=== PATIENT | female | born 1970 | race Caucasian/White ===

== ENCOUNTER 2021-04-21 11:33 | Inpatient (IN) ==
[2021-04-21 14:20] LABS: BASOPHILS # (AUTO) 0.1 X10^3/uL (0.0-0.1); BASOPHILS % (AUTO) 0.8 % (0.2-1.0); EOSINOPHILS # (AUTO) 0.2 x10^3/uL (0.0-0.2); EOSINOPHILS % (AUTO) 1.5 % (0.9-2.9); HEMATOCRIT 41.1 % (36.0-47.0); LYMPHOCYTES # (AUTO) 2.9 X10^3/uL (1.3-2.9); LYMPHOCYTES % (AUTO) 24.6 % (21.0-51.0); MEAN CORPUSCULAR HEMOGLOBIN 30.1 pg (27.0-34.0); MEAN CORPUSCULAR HGB CONC 34.1 g/dL (33.0-35.0); MEAN CORPUSCULAR VOLUME 88.3 fL (80.0-100.0); MEAN PLATELET VOLUME 7.4 fL (7.4-11.0); MONOCYTES # (AUTO) 0.5 x10^3/uL (0.3-0.8); MONOCYTES % (AUTO) 4.5 % (0.0-13.0); NEUTROPHILS # (AUTO) 8.2 x10^3/uL (2.2-4.8); NEUTROPHILS % (AUTO) 68.6 % (42.0-75.0); PLATELET COUNT 307 X10^3/uL (150.0-450.0); RED BLOOD COUNT 4.65 X10^6/uL (3.5-5.4); RED CELL DISTRIBUTION WIDTH 15.6 % (11.6-16.5); WHITE BLOOD COUNT 11.9 X10^3/uL (3.6-10.0)
[2021-04-21 14:32] LABS: ALANINE AMINOTRANSFERASE 23 Units/L (12-78); ALKALINE PHOSPHATASE 88 Units/L (46-116); ASPARTATE AMINO TRANSFERASE 15 Units/L (15-37); BLOOD UREA NITROGEN 27 mg/dL (7-18); CARBON DIOXIDE 29.2 mmol/L (21-32); CHLORIDE 107 mmol/L (98-107); COR CA(FOR HYPOALB) 9.8 mg/dL (8.5-10.1); CREATININE 0.82 mg/dL (0.55-1.02); SODIUM 141 mmol/L (136-145); TOTAL PROTEIN 6.7 g/dL (6.4-8.2); eGFR NON BLACK RACES > 60 (>60)
[2021-04-21] MEDS: LR 1000 ML IV 1,000 ML IV SCH (14:47)
[2021-04-21] MEDS: ZOSYN VIAL 3.375 GRAMS 3.375 G in NS 100 ML IV + SPIKE MINIBAG* 100 ML IV SCH ×3 (14:47→21:25)
[2021-04-21] MEDS ORDERED: NS 100 ML IV 100 ML ONE (14:50)
[2021-04-21] MEDS ORDERED: HumuLIN R SUBCUT PRN (15:46)
[2021-04-21] MEDS: NICOTINE PATCH TD SCH (16:28)
[2021-04-21] MEDS: DILAUDID INJ IVP PRN ×2 (16:29→22:05)
[2021-04-21] MEDS: SNACK - Diabetic Appropriate PO SCH (20:10)
[2021-04-21] MEDS: KLONOPIN TAB 1 MG PO PRN (21:09)
[2021-04-21] MEDS: HYZAAR 50/12.5 MG PO SCH (21:10)
[2021-04-21] MEDS: TOPROL XL PO SCH (21:10)
--- NOTE | 2021-04-21 22:07 | CT ---
CTA AORTA WITH RUNOFFIndication: Severe ischemia to left footTechnique: Helical CT images of the abdomen and pelvis were obtained with and without IV contrast with bilateral lower extremity runoff.. Reformatted images in the coronal and sagittal planes were also generated for review.Comparison: NoneFindings: Lung bases are clear. There is no acute osseous abnormality.Noncontrast images through the abdomen and pelvis are unremarkable. Within the limits of an arterial phase exam, the liver, spleen, pancreas, adrenals and kidneys are unremarkable. No urolithiasis or obstructive uropathy. There is mild distal colonic diverticulosis without diverticulitis. There is no bowel obstruction or inflammation. The urinary bladder is grossly unremarkable. Uterus is present. Bilateral, likely physiologic ovarian cysts noted. There is no free air, free fluid or bulky lymphadenopathy.The celiac axis and its branches, SMA, single right and 2 left renal arteries and RAQUEL are patent. Abdominal aorta is minimally calcified without aneurysm, dissection or occlusion.There is approximately 75% short-segment stenosis of the left common iliac artery secondary to calcified and soft atheromatous plaque. The right common and bilateral internal iliac arteries are mildly calcified but patent. Both external iliac arteries are widely patent.Right lower extremity. The CHAIN MAKER HAND, profunda femoris, SFA and popliteal artery are widely patent. Peroneal artery is patent to the level of the ankle. The anterior and posterior tibial arteries are widely patent with normal two-vessel runoff to the right foot.Left lower extremity: CHAIN MAKER HAND is minimally calcified the profunda femoris, SFA and popliteal artery are widely patent. Peroneal artery is patent to the level of the ankle. The anterior and posterior tibial arteries are widely patent with normal two-vessel runoff to the left foot.Impression:1. Mild atherosclerotic disease, notable for short segment, approximately 75 % stenosis of the left common iliac artery.2. No significant peripheral vascular disease. Normal two-vessel runoff to both feet.3. Other chronic/nonacute findings as described above.Electronically signed by: DI BLEVINS (Apr 21, 2021 22:04:15)
--- NOTE | 2021-04-21 22:53 | NOTE.SOAP ---
Soap Note Note for Day of Date of Exam: 04/21/21 Subjective Data Subjective Data: Patient admitted for critical limb threatening ischemia left extremity with not having wound left great toe several weeks. Patient had no palpable distal pulses. CT angiogram shows 75 % stenosis of the left common iliac artery Objective Data Temperature: 98 F Pulse Rate: 67 Respiratory Rate: 18 Blood Pressure: 149/76 O2 Sat by Pulse Oximetry: 100 Objective Data: Cool left foot. No palpable pulses distally. Difficult to palpate left femoral artery. CT angiogram shows setting prices stenosis of the left common iliac artery over a short segment. Assessment Assessment: Severe stenosis of the left common iliac artery. Plan Plan: Continue IV antibiotics. Plan intervention on 04/23 to include possible AngioJet aspiration and stenting of the left common iliac artery
[2021-04-22] MEDS: DILAUDID INJ IVP PRN ×6 (02:08→23:58)
[2021-04-22] MEDS: LR 1000 ML IV 1,000 ML IV SCH ×2 (02:12→15:45)
--- NOTE | 2021-04-22 08:11 | RAD ---
HISTORYSEVERE ISCHEMIA TO LEFT FOOT, PRE OPSTUDYCHEST x-ray, 1 VIEWCOMPARISONNoneFINDINGSThe trachea is midline. The cardiac silhouette is unremarkable .Lungs appear clear. No pneumothorax or pleural effusion is seen.No acute bony abnormality is seen.IMPRESSIONNo acute cardiopulmonary abnormality is seen.Electronically signed by: Charly Curtis (Apr 22, 2021 08:09:26)
[2021-04-22] MEDS: NICOTINE PATCH TD SCH (09:19)
[2021-04-22] MEDS: ZOSYN VIAL 3.375 GRAMS 3.375 G in NS 100 ML IV + SPIKE MINIBAG* 100 ML IV SCH ×2 (09:19→13:18)
--- NOTE | 2021-04-22 12:36 | NOTE.SOAP ---
Soap Note Note for Day of Date of Exam: 04/22/21 Subjective Data Subjective Data: Did well through night.Pain controlled with IV dilaudid. Objective Data Temperature: 97.6 F Pulse Rate: 60 Respiratory Rate: 18 Blood Pressure: 143/79 O2 Sat by Pulse Oximetry: 97 Objective Data: Left foot unchanged. CTA shows greater than 75 % stenosis of the left common iliac artery. Assessment Assessment: Critical limb threatening ischemia left leg secondary to severe stenosis left common iliac artery. Plan Plan: Will plan aortogram, possible Angiojet left common iliac artery and stenting left common iliac artery. Risks and benefits discussed with the patient and her . She agrees to proceed.
[2021-04-22] MEDS: ZOSYN VIAL 3.375 GRAMS 3.375 G in NS 50 ML IV + SPIKE MINIBAG* 50 ML IV SCH ×2 (13:18→21:04)
[2021-04-22] MEDS: SNACK - Diabetic Appropriate PO SCH (19:58)
[2021-04-22] MEDS: TOPROL XL PO SCH (20:01)
[2021-04-22] MEDS: HYZAAR 50/12.5 MG PO SCH (20:01)
[2021-04-22] MEDS: KLONOPIN TAB 1 MG PO PRN (21:04)
[2021-04-23] MEDS: DILAUDID INJ IVP PRN ×2 (04:01→08:55)
[2021-04-23] MEDS: LR 1000 ML IV 1,000 ML IV SCH ×3 (04:05→19:20)
[2021-04-23] MEDS: ZOSYN VIAL 3.375 GRAMS 3.375 G in NS 50 ML IV + SPIKE MINIBAG* 50 ML IV SCH ×3 (06:25→21:40)
[2021-04-23] MEDS: NICOTINE PATCH TD SCH (08:04)
[2021-04-23] MEDS ORDERED: KETALAR ONE (10:14)
[2021-04-23] MEDS ORDERED: FENTANYL INJ 100 mcg ONE (10:15)
[2021-04-23] MEDS ORDERED: MARCAINE or SENSORCAINE 0.25% WITH EPI IJ ONE (10:15)
[2021-04-23] MEDS ORDERED: HEPARIN SODIUM INJ 5000 UNITS ONE (10:17)
[2021-04-23] MEDS ORDERED: HEPARIN SODIUM IN D5W 75,000 UNITS/1,500 ML BAG ONE (10:18)
[2021-04-23] MEDS ORDERED: NS 1000 ML 1,000 ML ONE (10:26)
[2021-04-23] MEDS ORDERED: PROTAMINE SULFATE 50 MG VIAL ONE (10:55)
[2021-04-23] MEDS ORDERED: VERSED ONE (10:55)
[2021-04-23] MEDS ORDERED: ZOFRAN INJ 4 MG VIAL ONE (10:55)
[2021-04-23] MEDS ORDERED: DECADRON INJ ONE (10:55)
[2021-04-23] MEDS ORDERED: TORADOL 30 MG VIAL ONE (10:55)
[2021-04-23] MEDS ORDERED: DIPRIVAN VIAL ONE (10:55)
[2021-04-23] MEDS ORDERED: ANCEF 1 GRAM IV PREMIX* 2 G/100 ML BAG IV ONE (11:05)
--- NOTE | 2021-04-23 11:50 | OR.IMMED ---
IMMEDIATE POST-OP NOTE Immediate Post-Op Note Pre-Op Diagnosis: Severe stenosis left common iliac artery, critical left leg i schemia Post-Op Diagnosis: same Procedure: Diagnostic aortogram, stenting left common iliac stenosis Description of Procedure: See operative summary Surgeon/Weight Shifter: Louie Findings: as above Specimens Removed: none Estimated Blood Loss: < 20 cc Drains: NONE Complications: none Progress Notes: to floor , probably d/c home later today Discharge Progress Notes: Excellent palpable pulse in left groin not there pre -op Condition: Stable Post Hospital Plans and Medications: as above Final Diagnosis: severe stenosis left common iliac artery, critical left leg ischemia.
[2021-04-23] MEDS ORDERED: PLAVIX PO ONE (11:52)
[2021-04-23] MEDS: PERCOCET TAB 5/325 MG PO PRN ×2 (14:15→19:29)
[2021-04-23] MEDS ORDERED: XYLOCAINE 1 % (PLAIN) ONE (15:04)
--- NOTE | 2021-04-23 16:19 | NOTE.SOAP ---
Soap Note Note for Day of Date of Exam: 04/23/21 Subjective Data Subjective Data: S/p stenting left common iliac artery. Patient with continued bleeding form right groin puncture site . Plan Plan: Puncture site sutured closed with mattress suture of 5-0 Prolene using local anesthesia. Bleeding stopped . Will observe overnight, check CBC in AM and will observe. May start diet.
[2021-04-23] MEDS: SNACK - Diabetic Appropriate PO SCH (19:43)
[2021-04-23] MEDS: TOPROL XL PO SCH (21:36)
[2021-04-23] MEDS: HYZAAR 50/12.5 MG PO SCH (21:36)
[2021-04-23] MEDS: KLONOPIN TAB 1 MG PO PRN (21:48)
[2021-04-24] MEDS: PERCOCET TAB 5/325 MG PO PRN ×2 (03:55→07:58)
[2021-04-24] MEDS: ZOSYN VIAL 3.375 GRAMS 3.375 G in NS 50 ML IV + SPIKE MINIBAG* 50 ML IV SCH (05:28)
[2021-04-24 05:31] LABS: BASOPHILS # (AUTO) 0.1 X10^3/uL (0.0-0.1); BASOPHILS % (AUTO) 0.4 % (0.2-1.0); EOSINOPHILS % (AUTO) 0.1 % (0.9-2.9); HEMATOCRIT 39.1 % (36.0-47.0); HEMOGLOBIN 13.3 g/dL (12.0-16.0); LYMPHOCYTES # (AUTO) 2.3 X10^3/uL (1.3-2.9); LYMPHOCYTES % (AUTO) 17.7 % (21.0-51.0); MEAN CORPUSCULAR HEMOGLOBIN 30.2 pg (27.0-34.0); MEAN CORPUSCULAR HGB CONC 34.1 g/dL (33.0-35.0); MEAN CORPUSCULAR VOLUME 88.6 fL (80.0-100.0); MEAN PLATELET VOLUME 8.4 fL (7.4-11.0); MONOCYTES # (AUTO) 0.8 x10^3/uL (0.3-0.8); MONOCYTES % (AUTO) 6.1 % (0.0-13.0); NEUTROPHILS # (AUTO) 9.6 x10^3/uL (2.2-4.8); NEUTROPHILS % (AUTO) 75.7 % (42.0-75.0); PLATELET COUNT 271 X10^3/uL (150.0-450.0); RED BLOOD COUNT 4.41 X10^6/uL (3.5-5.4); RED CELL DISTRIBUTION WIDTH 15.5 % (11.6-16.5); WHITE BLOOD COUNT 12.7 X10^3/uL (3.6-10.0)
[2021-04-24] MEDS: LR 1000 ML IV 1,000 ML IV SCH (07:53)
--- NOTE | 2021-04-24 08:32 | DR.OPNOTE ---
OP NOTE Pre-Op Diagnosis: critical left leg ischemia, severe stenosis of the left common iliac artery Post-Op Diagnosis: same Procedure Date Date Of Procedure: 04/23/21 Procedure: The patient was taken to the operating suite and placed in the supine position and both groins prepped and draped in sterile fashion. Timeout for the procedure obtained. The right common femoral artery was identified using ultrasonography and the skin overlying it infiltrated with 0.5 %Marcaine with epinephrine. Ultrasonography used to guide the puncture of the right common femoral artery. A 0.014 inch wire was placed. The skin overlying the wire was incised with a number 11 knife blade and a micro sheath placed into the right common from artery. The small wire exchanged for a 0.035 inch Advantage guidewire and the micro sheath exchanged for a 5 [place]ian short vascular sheath . Omni catheter placed over the guidewire and a diagnostic aortogram carried out showing severe stenosis, near total occlusion of the proximal left common iliac artery. The Omni catheter was used to guide the 0.035 inch wire into the take off of the left common iliac artery and I was able to get across this stenosis with this wire. The patient had been heparinized with 5000 units of heparin at the beginning of the case. The short sheath in the right groin exchanged for a 6 [place]ian destination sheath which was parked just at the take off of the left common iliac artery. I then placed a [place] 8 mm x 37 mm stent across this stenosis and ballooned it open. I then repeated arteriogram showed excellent flow with resolution of the stenosis. I then performed diagnostic art eriogram of the distal left iliac artery, left common femoral artery, left superficial femoral artery and they were all normal corresponding to the CT angiogram. Destination sheath was exchanged for a short 7 [place]ian sheath in the right groin and this exchanged for the Angioseal device which was used to close the puncture in the right femoral artery. Patient was given a total of 50 mg of IV protamine. Dressing applied to the right groin in the patient taken to the recovery in good condition. Type of Anesthesia: Local (5 cc 0.5 % MArcaine with epinephrine) Anesthesia Comment: MAC Findings: Severe stenosis of the left common iliac artery Specimen/Pathology: none EBL: minimal Drains/Tubes Placed: None Hardware: 8x 37 mm stent placed in the left common iliac artery Complications:: none Needle/Sponge Count:: correct Disposition/Condition: Pt. tolerated procedure without difficulty. Taken to PACU in stable condition.
[2021-04-24 08:34] VITALS: BP 161/83
[2021-04-24] MEDS: NICOTINE PATCH TD SCH (08:35)
--- NOTE | 2021-04-24 10:15 | PCM.DCPLAN ---
DISCHARGE SUMMARY Admission Date Date of Admission: 04/22/21 Discharge Date Discharge Date: 04/24/21 Discharge Diagnoses Discharge Diagnosis: critical limb ischemia and severe stenosis left common iliac artery Discharge Medications Discharge Medications: Home Medication List clonazepam 1 mg PO BID PRN 04/21/21 [History] hydrochlorothiazide 12.5 mg PO DAILY 04/21/21 [History] losartan 50 mg PO DAILY 04/21/21 [History] metformin 500 mg PO DAILY 04/21/21 [History] metoprolol succinate 50 mg PO DAILY 04/21/21 [History] clopidogrel [Plavix] 75 mg PO ONCE #90 tab 04/24/21 [Rx] oxycodone-acetaminophen [Percocet] 1 tab PO Q6H PRN #30 tab MDD 4 04/24/21 [Rx] Prescriptions: clopidogrel [Plavix] Reji Palma oxycodone-acetaminophen [Percocet] Reji Palma Hospital Course Vital Signs: Temperature 98.3 F Pulse Rate [Left Brachial] 68 Pulse Rate 67 Respiratory Rate 22 Blood Pressure [Left Arm] 161/83 Blood Pressure 147/66 O2 Sat by Pulse Oximetry 100 Latest Lab Results: Laboratory Last Values WBC 12.7 X10^3/uL (3.6-10.0) H 04/24/21 03:58 RBC 4.41 X10^6/uL (3.5-5.4) 04/24/21 03:58 Hgb 13.3 g/dL (12.0-16.0) 04/24/21 03:58 Hct 39.1 % (36.0-47.0) 04/24/21 03:58 MCV 88.6 fL (80.0-100.0) 04/24/21 03:58 MCH 30.2 pg (27.0-34.0) 04/24/21 03:58 MCHC 34.1 g/dL (33.0-35.0) 04/24/21 03:58 RDW 15.5 % (11.6-16.5) 04/24/21 03:58 Plt Count 271 X10^3/uL (150.0-450.0) 04/24/21 03:58 MPV 8.4 fL (7.4-11.0) 04/24/21 03:58 Neut % (Auto) 75.7 % (42.0-75.0) H 04/24/21 03:58 Lymph % (Auto) 17.7 % (21.0-51.0) L 04/24/21 03:58 Blair % (Auto) 6.1 % (0.0-13.0) 04/24/21 03:58 Eos % (Auto) 0.1 % (0.9-2.9) L 04/24/21 03:58 Baso % (Auto) 0.4 % (0.2-1.0) 04/24/21 03:58 Neut # (Auto) 9.6 x10^3/uL (2.2-4.8) H 04/24/21 03:58 Lymph # (Auto) 2.3 X10^3/uL (1.3-2.9) 04/24/21 03:58 Blair # (Auto) 0.8 x10^3/uL (0.3-0.8) 04/24/21 03:58 Eos # (Auto) 0.0 x10^3/uL (0.0-0.2) 04/24/21 03:58 Baso # (Auto) 0.1 X10^3/uL (0.0-0.1) 04/24/21 03:58 Absolute Nucleated RBC 0.0 /100WBC 04/24/21 03:58 Sodium 141 mmol/L (136-145) 04/21/21 14:11 Corrected Sodium TNP 04/21/21 14:11 Potassium 4.6 mmol/L (3.5-5.1) 04/21/21 14:11 Chloride 107 mmol/L (98-107) 04/21/21 14:11 Carbon Dioxide 29.2 mmol/L (21-32) 04/21/21 14:11 BUN 27 mg/dL (7-18) H 04/21/21 14:11 Creatinine 0.82 mg/dL (0.55-1.02) 04/21/21 14:11 Est GFR (MDRD) Af Amer > 60 (>60) 04/21/21 14:11 Est GFR (MDRD) Non-Af > 60 (>60) 04/21/21 14:11 Glucose 95 mg/dL (65-99) 04/21/21 14:11 POC Glucose (mg/dL) 120 mg/dL (65-99) H 04/24/21 05:22 Calcium 9.0 mg/dL (8.5-10.1) 04/21/21 14:11 Corrected Calcium 9.8 mg/dL (8.5-10.1) 04/21/21 14:11 Total Bilirubin 0.20 mg/dL (0.2-1.0) 04/21/21 14:11 AST 15 Units/L (15-37) 04/21/21 14:11 ALT 23 Units/L (12-78) 04/21/21 14:11 Alkaline Phosphatase 88 Units/L (46-116) 04/21/21 14:11 Total Protein 6.7 g/dL (6.4-8.2) 04/21/21 14:11 Albumin 3.0 g/dL (3.4-5.0) L 04/21/21 14:11 Globulin 3.7 g/dL (2.5-4.5) 04/21/21 14:11 Albumin/Globulin Ratio 0.8 Ratio (1.1-2.1) L 04/21/21 14:11 SARS CoV-2 RNA Rapid KAVYA Negative (NEGATIVE) 04/21/21 13:00 Hospital Course: 50-year-old female who presented with several week history of pain of the left foot and nonhealing wound to the left great toe, followed by her administrative judge. She has a long history of significant tobacco use and is also a diabetic. At the initial presentation I felt she had critical limb ischemia and she was admitted. She was placed on IV antibiotics and CT angiogram carried out showing greater than a 75% stenosis of the proximal left common iliac artery. On 04/23/2021 she was taken to the operating suite and underwent stenting of the left common iliac artery. Her rest pain is now resolved. She now has palpable pulses at the ankle in both the posterior tibial and dorsalis pedis locations which were not there preoperatively. She will discharged home at this time on her usual medications plus Percocet, 5 mg tablets, one every 6 hours PRN pain, # 30 and Plavix 75 mg PO Q day. She has a follow up with her administrative judge next Tuesday. She will see me in my office in approximately one week. She will need no additional antibiotics. Instructions Instructions: Steps to Quit Smoking, [id number] Hypertension, [id number]-[id number] Coronary Artery Disease, Female Forms: Excuse From Work or School Precautions for COVID19 Patient Portal Social Distancing
== END 2021-04-24 10:32 | disposition home or self-care (01) | DRG 254 ==
LOC: MED/SURG → OBSVTOIN 12:35
PROVIDERS: ADMIT Surgery; ATTEND Surgery
DX: I70.222 Atherosclerosis of native arteries of extremities with rest pain, left leg; I10 Essential (primary) hypertension; Z20.822 Contact with and (suspected) exposure to COVID-19; R52 Pain, unspecified; I70.245 Atherosclerosis of native arteries of left leg with ulceration of other part of foot; L97.528 Non-pressure chronic ulcer of other part of left foot with other specified severity; F12.20 Cannabis dependence, uncomplicated; Z72.0 Tobacco use; E11.51 Type 2 diabetes mellitus with diabetic peripheral angiopathy without gangrene

== ENCOUNTER 2022-09-08 11:41 | Inpatient (IN) ==
[2022-09-08] MEDS ORDERED: NovoLIN R (or HumuLIN R) SC PRN (13:22)
[2022-09-08] MEDS ORDERED: LOPRESSOR TAB 50 MG PO ONE (13:22)
[2022-09-08] MEDS ORDERED: HEPARIN SODIUM IN D5W 25,000 UNITS/500 ML BAG IV PRN ×2 (13:24→16:08)
[2022-09-08 13:37] VITALS: BMI 28.0
[2022-09-08 13:54] LABS: MEAN CORPUSCULAR HEMOGLOBIN 29.4 pg (27.0-34.0); MEAN CORPUSCULAR HGB CONC 34.9 g/dL (33.0-35.0); MEAN PLATELET VOLUME 7.8 fL (7.4-11.0); RED BLOOD COUNT 4.76 X10^6/uL (3.5-5.4); WHITE BLOOD COUNT 9.7 X10^3/uL (3.6-10.0)
[2022-09-08 13:58] LABS: BASOPHILS # (AUTO) 0.1 X10^3/uL (0.0-0.1); BASOPHILS % (AUTO) 0.8 % (0.2-1.0); EOSINOPHILS # (AUTO) 0.1 x10^3/uL (0.0-0.2); EOSINOPHILS % (AUTO) 1.5 % (0.9-2.9); HEMATOCRIT 40.1 % (36.0-47.0); LYMPHOCYTES # (AUTO) 2.6 X10^3/uL (1.3-2.9); LYMPHOCYTES % (AUTO) 26.6 % (21.0-51.0); MEAN CORPUSCULAR VOLUME 84.2 fL (80.0-100.0); MONOCYTES # (AUTO) 0.5 x10^3/uL (0.3-0.8); MONOCYTES % (AUTO) 4.8 % (0.0-13.0); NEUTROPHILS # (AUTO) 6.4 x10^3/uL (2.2-4.8); NEUTROPHILS % (AUTO) 66.3 % (42.0-75.0)
[2022-09-08 13:59] LABS: INR 1.05 (0.8-1.3)
[2022-09-08 14:05] LABS: ALANINE AMINOTRANSFERASE 27 Units/L (12-78); ALBUMIN 3.9 g/dL (3.4-5.0); ALKALINE PHOSPHATASE 111 Units/L (46-116); ASPARTATE AMINO TRANSFERASE 21 Units/L (15-37); BLOOD UREA NITROGEN 27 mg/dL (7-18); CALCIUM 9.1 mg/dL (8.5-10.1); CARBON DIOXIDE 24.4 mmol/L (21-32); CHLORIDE 103 mmol/L (98-107); COR NA(FOR HYPERGLY) 139 mmol/L (136-145); CREATININE 1.44 mg/dL (0.55-1.02); SODIUM 139 mmol/L (136-145); TOTAL PROTEIN 7.2 g/dL (6.4-8.2); eGFR NON BLACK RACES 41 (>60)
[2022-09-08] MEDS ORDERED: HEPARIN SODIUM INJ 5000 UNITS IVP ONE ×2 (14:10→22:37)
[2022-09-08] MEDS: LR 1,000 ML IV 1,000 ML IV SCH (14:47)
[2022-09-08] MEDS: KLONOPIN TAB 1 MG PO SCH ×2 (14:47→21:01)
[2022-09-08] MEDS: DILAUDID INJ IVP PRN ×3 (16:46→23:24)
--- NOTE | 2022-09-08 17:14 | CT ---
HISTORYacute ischemia rt legSTUDYCTA AORTA WITH RUNOFFCOMPARISONTECHNIQUESpiral CT imaging was performed from the lung bases down through the feet both before and after the intravenous administration of iodinated contrast. Axial, coronal, sagittal, and 3D images were generated. Dose reduction techniques including Automated Exposure Control (AEC) and adjustment of mA and kV were utilized.FINDINGSThere is moderate atherosclerosis in the abdominal aorta but no significant disease in the celiac trunk or SMA. There is some disease at the origins of the renal arteries but no flow limiting stenosis. There is normal flow in the RAQUEL. There is disease in the right common iliac. There is a stent in the left common iliac and severely restricted flow within the stent due to soft plaque. There is disease in the internal iliac arteries bilaterally, left worse than right with approximately 50 percent stenosis in the proximal left ICA. There is heterogeneous plaque in the common femoral arteries bilaterally. There is no significant plaque in the superficial or deep femoral arteries. There is no significant disease in the popliteal artery and there is 3 vessel runoff bilaterally.The lung bases are clear without effusion. Heart size is normal. The liver, pancreas, spleen, adrenal glands, and kidneys are normal. The stomach, small bowel, appendix are normal. Large bowel loops are unremarkable. Urinary bladder is normal. Uterus is normal and there is no adnexal mass. There is no worrisome bone marrow lesion.IMPRESSION1. No obstruction in the flow to the right leg. 2. Heterogeneous plaque in the distal aorta and in the right common iliac as described. 3. Stent in the left common iliac artery with soft plaque causing considerable reduction to flow. Consider referral to interventional radiology for follow-up.Electronically signed by: Sky Barrientos (Sep 08, 2022 17:13:32)
[2022-09-08] MEDS: NICOTINE PATCH TD SCH (18:14)
[2022-09-09] MEDS: LR 1,000 ML IV 1,000 ML IV SCH (04:35)
[2022-09-09 04:38] LABS: BASOPHILS % (AUTO) 0.5 % (0.2-1.0); EOSINOPHILS # (AUTO) 0.2 x10^3/uL (0.0-0.2); EOSINOPHILS % (AUTO) 2.5 % (0.9-2.9); HEMATOCRIT 39.2 % (36.0-47.0); HEMOGLOBIN 13.4 g/dL (12.0-16.0); LYMPHOCYTES # (AUTO) 3.5 X10^3/uL (1.3-2.9); LYMPHOCYTES % (AUTO) 37.2 % (21.0-51.0); MEAN CORPUSCULAR HEMOGLOBIN 28.8 pg (27.0-34.0); MEAN CORPUSCULAR HGB CONC 34.1 g/dL (33.0-35.0); MEAN CORPUSCULAR VOLUME 84.3 fL (80.0-100.0); MEAN PLATELET VOLUME 8.1 fL (7.4-11.0); MONOCYTES # (AUTO) 0.6 x10^3/uL (0.3-0.8); MONOCYTES % (AUTO) 6.8 % (0.0-13.0); RED BLOOD COUNT 4.65 X10^6/uL (3.5-5.4); RED CELL DISTRIBUTION WIDTH 15.5 % (11.6-16.5); WHITE BLOOD COUNT 9.5 X10^3/uL (3.6-10.0)
[2022-09-09 04:50] LABS: ALBUMIN 3.3 g/dL (3.4-5.0); CALCIUM 8.5 mg/dL (8.5-10.1); CARBON DIOXIDE 26.2 mmol/L (21-32); COR CA(FOR HYPOALB) 9.1 mg/dL (8.5-10.1); CREATININE 1.38 mg/dL (0.55-1.02); TOTAL PROTEIN 6.4 g/dL (6.4-8.2)
[2022-09-09] MEDS: KLONOPIN TAB 1 MG PO SCH ×2 (05:23→15:34)
[2022-09-09] MEDS: DILAUDID INJ IVP PRN (05:59)
[2022-09-09] MEDS ORDERED: ASPIRIN EC 81 MG PO SCH (09:00)
[2022-09-09] MEDS ORDERED: HYZAAR 50/12.5 MG PO SCH (09:00)
--- NOTE | 2022-09-09 09:44 | DR.UPDATE ---
H&P UPDATE Review Yes Any changes to H&P?: No
[2022-09-09] MEDS ORDERED: HEPARIN SODIUM INJ 5000 UNITS IVP ONE (10:48)
[2022-09-09] MEDS ORDERED: HEPARIN SODIUM INJ 5000 UNITS ONE ×2 (10:52→14:19)
[2022-09-09] MEDS ORDERED: ANCEF VIAL 1 GRAM ONE (13:24)
[2022-09-09] MEDS ORDERED: NS 100 ML IV 100 ML ONE (13:24)
[2022-09-09] MEDS ORDERED: NS 1,000 ML IV 1,000 ML ONE (13:24)
[2022-09-09] MEDS ORDERED: HEPARIN SODIUM IN D5W 75,000 UNITS/1,500 ML BAG ONE (13:41)
[2022-09-09] MEDS ORDERED: MARCAINE 0.5% ONE (13:42)
[2022-09-09] MEDS ORDERED: PRECEDEX INJ VIAL IVP ONE (14:02)
[2022-09-09] MEDS ORDERED: KETAMINE HCL ONE (14:02)
[2022-09-09] MEDS ORDERED: FENTANYL VIAL INJ 100 mcg ONE (14:15)
[2022-09-09] MEDS ORDERED: DIPRIVAN VIAL 40 ML ONE (14:20)
[2022-09-09] MEDS ORDERED: MAGNESIUM SULFATE 50% INJ VIAL ONE (14:20)
[2022-09-09] MEDS ORDERED: DIPRIVAN VIAL 20 ML ONE (14:57)
--- NOTE | 2022-09-09 15:28 | OR.IMMED ---
IMMEDIATE POST-OP NOTE Immediate Post-Op Note Pre-Op Diagnosis: left iliac occlusion with critical left leg ischemia. Post-Op Diagnosis: same Procedure: aortogram, arteriogram left iliac artery, angioplasty followed by balloon expandable stent placement left iliac artery. Description of Procedure: se operative summary Surgeon/Upholstery Auto Trimmer: Louie Findings: severe intrastent stenosis/ occlusion of the left common iliac stent. Estimated Blood Loss: < 25 cc Complications: none Progress Notes: Return to floor, when tolerates diet will discharge home on PO Xarelto. Final Diagnosis: as above.
[2022-09-09] MEDS: NICOTINE PATCH TD SCH (15:49)
[2022-09-09] MEDS ORDERED: PERCOCET TAB 5/325 MG PO PRN (15:50)
[2022-09-09] MEDS ORDERED: XARELTO PO NR ×2 (16:00)
--- NOTE | 2022-09-09 16:04 | W.DIS.FURT ---
Summary of Discharge Discharge Summary of Date Date of Exam: 09/09/22 Admission Date Date of Admission: 09/08/22 Admission Diagnosis Hospital Course: 52 year old female who is a heavy smoker who has had stenting of left iliac occlusion in the past with recurrence times one who presented this time with rest pain of the left leg and no palpable pulse in the left groin. CT angiogram confirmed near total occlusion of the left iliac stent. She was admitted and placed on IV heparin . Today she was takedn to the operating room today where she underwent stenting of the intrastent ilac stenosis with a balloon expandable stent. She will be discharged home on her usual medications which includes Xarelto 15 mg BID and aspirin 81 mgs q day. I have encouraged her not to smoke. She also will be given Percocet, 5 mg tablets, one every six hours PRN pain. She will follow up with me in one week. Vital Signs: Vital Signs (72 hours) 09/08/22 16:46 09/08/22 13:00 09/08/22 13:10 Temperature Pulse Rate 84 Respiratory Rate 20 Blood Pressure O2 Sat by Pulse Oximetry Oxygen Delivery Method Room Air 09/08/22 13:12 09/08/22 13:12 09/08/22 13:12 Temperature Pulse Rate 82 Respiratory Rate 15 Blood Pressure 118/70 118/70 O2 Sat by Pulse Oximetry 98 Oxygen Delivery Method 09/08/22 13:15 09/08/22 13:30 09/08/22 13:45 Temperature Pulse Rate 81 80 74 Respiratory Rate 21 33 H 10 L Blood Pressure O2 Sat by Pulse Oximetry 98 99 98 Oxygen Delivery Method 09/08/22 14:00 09/08/22 14:00 09/08/22 14:15 Temperature Pulse Rate 71 73 Respiratory Rate 13 17 Blood Pressure 116/71 O2 Sat by Pulse Oximetry 96 98 Oxygen Delivery Method 09/08/22 14:30 09/08/22 14:45 09/08/22 15:00 Temperature Pulse Rate 77 73 Respiratory Rate 11 L 26 H Blood Pressure 110/73 O2 Sat by Pulse Oximetry 97 100 Oxygen Delivery Method 09/08/22 15:00 09/08/22 15:31 09/08/22 15:45 Temperature Pulse Rate 71 74 69 Respiratory Rate 14 15 12 Blood Pressure O2 Sat by Pulse Oximetry 98 100 100 Oxygen Delivery Method 09/08/22 16:00 09/08/22 16:00 09/08/22 16:15 Temperature 98.2 F Pulse Rate 71 66 Respiratory Rate 9 L 12 Blood Pressure 102/62 O2 Sat by Pulse Oximetry 99 98 Oxygen Delivery Method Room Air 09/08/22 16:30 09/08/22 16:45 09/08/22 17:00 Temperature Pulse Rate 72 68 Respiratory Rate 15 32 H Blood Pressure 130/71 O2 Sat by Pulse Oximetry 99 99 Oxygen Delivery Method 09/08/22 17:00 09/08/22 17:16 09/08/22 17:15 Temperature Pulse Rate 77 80 Respiratory Rate 11 L 20 27 H Blood Pressure O2 Sat by Pulse Oximetry 98 98 Oxygen Delivery Method Nasal Cannula 09/08/22 17:30 09/08/22 17:45 09/08/22 18:00 Temperature Pulse Rate 85 89 Respiratory Rate 37 H 22 Blood Pressure 112/79 O2 Sat by Pulse Oximetry 98 98 Oxygen Delivery Method 09/08/22 18:00 09/08/22 19:00 09/08/22 18:15 Temperature Pulse Rate 80 80 Respiratory Rate 16 38 H Blood Pressure O2 Sat by Pulse Oximetry 98 99 Oxygen Delivery Method Room Air 09/08/22 18:30 09/08/22 18:45 09/08/22 19:00 Temperature Pulse Rate 79 79 76 Respiratory Rate 14 25 H 44 H Blood Pressure O2 Sat by Pulse Oximetry 97 98 97 Oxygen Delivery Method 09/08/22 19:02 09/08/22 19:02 09/08/22 19:15 Temperature Pulse Rate 78 77 Respiratory Rate 31 H 16 Blood Pressure 123/61 O2 Sat by Pulse Oximetry 98 98 Oxygen Delivery Method 09/08/22 19:30 09/08/22 19:45 09/08/22 20:33 Temperature Pulse Rate 77 79 Respiratory Rate 16 16 16 Blood Pressure O2 Sat by Pulse Oximetry 94 L 94 L Oxygen Delivery Method 09/08/22 20:00 09/08/22 20:00 09/08/22 20:15 Temperature 98.5 F Pulse Rate 80 80 Respiratory Rate 16 13 Blood Pressure 105/56 O2 Sat by Pulse Oximetry 95 96 Oxygen Delivery Method 09/08/22 20:30 09/08/22 20:45 09/08/22 21:00 Temperature Pulse Rate 76 82 Respiratory Rate 8 L 27 H Blood Pressure 141/76 O2 Sat by Pulse Oximetry 98 98 Oxygen Delivery Method 09/08/22 21:00 09/08/22 21:03 09/08/22 23:24 Temperature Pulse Rate 81 Respiratory Rate 11 L 20 18 Blood Pressure O2 Sat by Pulse Oximetry 98 Oxygen Delivery Method 09/08/22 21:15 09/08/22 21:30 09/08/22 21:45 Temperature Pulse Rate 80 77 84 Respiratory Rate 20 13 30 H Blood Pressure O2 Sat by Pulse Oximetry 98 98 97 Oxygen Delivery Method 09/08/22 22:00 09/08/22 22:01 09/08/22 22:01 Temperature Pulse Rate 84 79 Respiratory Rate 21 14 Blood Pressure 98/66 O2 Sat by Pulse Oximetry 99 98 Oxygen Delivery Method 09/08/22 22:15 09/08/22 22:30 09/08/22 22:45 Temperature Pulse Rate 78 77 76 Respiratory Rate 49 H 24 26 H Blood Pressure O2 Sat by Pulse Oximetry 96 95 96 Oxygen Delivery Method 09/08/22 23:00 09/08/22 23:01 09/08/22 23:01 Temperature Pulse Rate 90 86 Respiratory Rate 33 H 29 H Blood Pressure 151/77 O2 Sat by Pulse Oximetry 98 98 Oxygen Delivery Method 09/08/22 23:15 09/08/22 23:30 09/08/22 23:45 Temperature Pulse Rate 83 79 81 Respiratory Rate 18 15 14 Blood Pressure O2 Sat by Pulse Oximetry 98 97 98 Oxygen Delivery Method 09/09/22 00:00 09/09/22 00:01 09/09/22 00:01 Temperature Pulse Rate 78 77 Respiratory Rate 13 12 Blood Pressure 129/69 O2 Sat by Pulse Oximetry 99 98 Oxygen Delivery Method 09/09/22 00:15 09/08/22 23:54 09/09/22 00:30 Temperature Pulse Rate 82 71 Respiratory Rate 27 H 20 21 Blood Pressure O2 Sat by Pulse Oximetry 97 95 Oxygen Delivery Method 09/09/22 00:45 09/09/22 01:00 09/09/22 01:00 Temperature Pulse Rate 72 74 Respiratory Rate 15 13 Blood Pressure 109/59 O2 Sat by Pulse Oximetry 96 96 Oxygen Delivery Method 09/09/22 01:15 09/09/22 01:33 09/09/22 01:45 Temperature Pulse Rate 73 87 74 Respiratory Rate 20 18 13 Blood Pressure O2 Sat by Pulse Oximetry 96 Oxygen Delivery Method 09/09/22 02:00 09/09/22 02:00 09/09/22 02:15 Temperature Pulse Rate 79 73 Respiratory Rate 29 H 15 Blood Pressure 113/66 O2 Sat by Pulse Oximetry 98 95 Oxygen Delivery Method 09/09/22 02:30 09/09/22 02:45 09/09/22 03:00 Temperature Pulse Rate 73 75 Respiratory Rate 14 13 Blood Pressure 108/58 O2 Sat by Pulse Oximetry 93 L 92 L Oxygen Delivery Method 09/09/22 03:00 09/09/22 03:15 09/09/22 03:30 Temperature Pulse Rate 77 83 83 Respiratory Rate 12 13 13 Blood Pressure O2 Sat by Pulse Oximetry 92 L 91 L 94 L Oxygen Delivery Method 09/09/22 03:45 09/09/22 04:01 09/09/22 04:03 Temperature 97.9 F Pulse Rate 82 91 H Respiratory Rate 13 Blood Pressure 118/57 O2 Sat by Pulse Oximetry 94 L Oxygen Delivery Method 09/09/22 04:03 09/09/22 04:15 09/09/22 04:30 Temperature Pulse Rate 85 79 75 Respiratory Rate 11 L 13 12 Blood Pressure O2 Sat by Pulse Oximetry 97 97 96 Oxygen Delivery Method 09/09/22 04:45 09/09/22 05:00 09/09/22 05:00 Temperature Pulse Rate 71 84 Respiratory Rate 13 16 Blood Pressure 99/59 O2 Sat by Pulse Oximetry 96 99 Oxygen Delivery Method 09/09/22 05:15 09/09/22 05:59 09/09/22 05:41 Temperature Pulse Rate 77 77 Respiratory Rate 15 18 Blood Pressure O2 Sat by Pulse Oximetry 94 L 98 Oxygen Delivery Method 09/09/22 05:45 09/09/22 06:00 09/09/22 06:00 Temperature Pulse Rate 71 67 Respiratory Rate Blood Pressure 105/59 O2 Sat by Pulse Oximetry 98 93 L Oxygen Delivery Method 09/09/22 06:15 09/09/22 06:30 09/09/22 07:00 Temperature Pulse Rate 70 69 Respiratory Rate Blood Pressure O2 Sat by Pulse Oximetry 96 93 L Oxygen Delivery Method Room Air 09/09/22 06:45 09/09/22 07:00 09/09/22 07:00 Temperature 98.2 F Pulse Rate 70 74 Respiratory Rate Blood Pressure 110/60 O2 Sat by Pulse Oximetry 94 L 96 Oxygen Delivery Method 09/09/22 08:00 09/09/22 08:00 09/09/22 09:00 Temperature 98.2 F Pulse Rate 71 Respiratory Rate Blood Pressure 106/57 100/55 O2 Sat by Pulse Oximetry 95 Oxygen Delivery Method 09/09/22 09:00 09/09/22 10:01 09/09/22 10:01 Temperature Pulse Rate 68 74 Respiratory Rate Blood Pressure 104/57 O2 Sat by Pulse Oximetry 96 97 Oxygen Delivery Method 09/09/22 11:00 09/09/22 11:01 09/09/22 11:01 Temperature Pulse Rate 65 65 Respiratory Rate Blood Pressure 123/76 O2 Sat by Pulse Oximetry 96 96 Oxygen Delivery Method 09/09/22 06:29 09/09/22 13:20 09/09/22 12:00 Temperature 97.0 F L Pulse Rate 69 Respiratory Rate 22 17 Blood Pressure 127/74 134/82 O2 Sat by Pulse Oximetry 99 Oxygen Delivery Method Room Air 09/09/22 12:00 09/09/22 13:00 09/09/22 13:01 Temperature 98.4 F Pulse Rate 69 66 64 Respiratory Rate Blood Pressure O2 Sat by Pulse Oximetry 96 97 97 Oxygen Delivery Method 09/09/22 13:01 Temperature Pulse Rate Respiratory Rate Blood Pressure 110/59 O2 Sat by Pulse Oximetry Oxygen Delivery Method Labs: Laboratory Last Values WBC 9.5 X10^3/uL (3.6-10.0) 09/09/22 04:15 RBC 4.65 X10^6/uL (3.5-5.4) 09/09/22 04:15 Hgb 13.4 g/dL (12.0-16.0) 09/09/22 04:15 Hct 39.2 % (36.0-47.0) 09/09/22 04:15 MCV 84.3 fL (80.0-100.0) 09/09/22 04:15 MCH 28.8 pg (27.0-34.0) 09/09/22 04:15 MCHC 34.1 g/dL (33.0-35.0) 09/09/22 04:15 RDW 15.5 % (11.6-16.5) 09/09/22 04:15 Plt Count 203 X10^3/uL (150.0-450.0) 09/09/22 04:15 MPV 8.1 fL (7.4-11.0) 09/09/22 04:15 Neut % (Auto) 53.0 % (42.0-75.0) 09/09/22 04:15 Lymph % (Auto) 37.2 % (21.0-51.0) 09/09/22 04:15 Phillips % (Auto) 6.8 % (0.0-13.0) 09/09/22 04:15 Eos % (Auto) 2.5 % (0.9-2.9) 09/09/22 04:15 Baso % (Auto) 0.5 % (0.2-1.0) 09/09/22 04:15 Neut # (Auto) 5.0 x10^3/uL (2.2-4.8) H 09/09/22 04:15 Lymph # (Auto) 3.5 X10^3/uL (1.3-2.9) H 09/09/22 04:15 Phillips # (Auto) 0.6 x10^3/uL (0.3-0.8) 09/09/22 04:15 Eos # (Auto) 0.2 x10^3/uL (0.0-0.2) 09/09/22 04:15 Baso # (Auto) 0.0 X10^3/uL (0.0-0.1) 09/09/22 04:15 Absolute Nucleated RBC 0.0 /100WBC 09/09/22 04:15 PT 13.4 SECONDS (11.8-14.3) 09/08/22 13:38 INR Target Range - 09/08/22 13:38 INR 1.05 (0.8-1.3) 09/08/22 13:38 APTT 58.5 SECONDS (22.9-36.5) H 09/09/22 10:03 PTT Comment - 09/09/22 10:03 Sodium 139 mmol/L (136-145) 09/09/22 04:15 Corrected Sodium 139 mmol/L (136-145) 09/09/22 04:15 Potassium 3.7 mmol/L (3.5-5.1) 09/09/22 04:15 Chloride 104 mmol/L (98-107) 09/09/22 04:15 Carbon Dioxide 26.2 mmol/L (21-32) 09/09/22 04:15 BUN 27 mg/dL (7-18) H 09/09/22 04:15 Creatinine 1.38 mg/dL (0.55-1.02) H 09/09/22 04:15 Est GFR (MDRD) Af Amer 52 (>60) L 09/09/22 04:15 Est GFR (MDRD) Non-Af 43 (>60) L 09/09/22 04:15 Glucose 111 mg/dL (65-99) H 09/09/22 04:15 POC Glucose (mg/dL) 93 mg/dL (65-99) 09/09/22 12:05 Calcium 8.5 mg/dL (8.5-10.1) 09/09/22 04:15 Corrected Calcium 9.1 mg/dL (8.5-10.1) 09/09/22 04:15 Total Bilirubin 0.30 mg/dL (0.2-1.0) 09/09/22 04:15 AST 34 Units/L (15-37) 09/09/22 04:15 ALT 28 Units/L (12-78) 09/09/22 04:15 Alkaline Phosphatase 105 Units/L (46-116) 09/09/22 04:15 Total Protein 6.4 g/dL (6.4-8.2) 09/09/22 04:15 Albumin 3.3 g/dL (3.4-5.0) L 09/09/22 04:15 Globulin 3.1 g/dL (2.5-4.5) 09/09/22 04:15 Albumin/Globulin Ratio 1.1 Ratio (1.1-2.1) 09/09/22 04:15 Reason For Visit: LEFT ILIAC OCCLUSION Discharge Date Discharge Date: 09/09/22 Discharge Diagnosis All Active Problems (Updated 04/24/21 @ 10:14 by Reji Palma) Critical lower limb ischemia (Acute ~04/24/21) Plan of Treatment: Continue with present treatment and follow up plan. Pt is to keep follow up appointment as instructed and take medications as ordered. Discharge Medications Discharge Medications: No Known Drug Allergies [NKDA] Allergy (Verified 04/21/21 14:15) CONTINUE taking the following medications atorvastatin 40 mg tablet 1 tab PO QDAY 09/08/22 [History] clonazepam 1 mg tablet 1 tab PO BID PRN 09/08/22 [History] hydrochlorothiazide 12.5 mg capsule 1 cap PO QDAY 09/08/22 [History] losartan 50 mg tablet 1 tab PO QDAY 09/08/22 [History] metoprolol succinate 50 mg tablet,extended release 24 hr 1 tab PO QDAY 09/08/22 [History] vortioxetine 20 mg tablet (Trintellix) 1 tab PO QDAY 09/08/22 [History] New Prescriptions oxycodone-acetaminophen 5 mg-325 mg tablet (Percocet) 1 tab PO Q6H PRN #30 tabs 09/09/22 [Rx] rivaroxaban 15 mg tablet (Xarelto) 15 mg PO BID #60 tabs 09/09/22 [Rx] Discharge Disposition Assessment: Left iliac artery intrastent stenosis treated with balloon expandable stent. Discharge Plan Discharge Plan Hospital Course: 52 year old female who is a heavy smoker who has had stenting of left iliac occlusion in the past with recurrence times one who presented this time with rest pain of the left leg and no palpable pulse in the left groin. CT angiogram confirmed near total occlusion of the left iliac stent. She was admitted and placed on IV heparin . Today she was takedn to the operating room today where she underwent stenting of the intrastent ilac stenosis with a balloon expandable stent. She will be discharged home on her usual medications which includes Xarelto 15 mg BID and aspirin 81 mgs q day. I have encouraged her not to smoke. She also will be given Percocet, 5 mg tablets, one every six hours PRN pain. She will follow up with me in one week. Patient Disposition: 01 HOME, SELF-CARE Condition: Stable Health Concerns: Post Hospitalization: new medications and changes needed to prevent readmission or further decline. Pt educated and given instructions on all concerns. Care Plan Goals: Problem: Altered Tissue Perfusion Goal: Adequate Tissue Perfusion Instructions: Follow provided instructions. Follow up with primary physician as directed. Contact primary care physician or report to the closest Emergency Room if condition worsens. Plan of Treatment: Continue with present treatment and follow up plan. Pt is to keep follow up appointment as instructed and take medications as ordered. Assessment: Left iliac artery intrastent stenosis treated with balloon expandable stent. Prescription drug monitoring program results: PDMP reviewed and no concerns identified Prescriptions: New Xarelto 15 mg tablet 15 mg PO BID Qty: 60 0RF Rx Instructions: must administer with evening meal oxycodone-acetaminophen [Percocet] 5-325 mg tablet 1 tab PO Q6H MDD 4 PRNQty: 30 0RF Continued losartan 50 mg tablet 1 tab PO QDAY atorvastatin 40 mg tablet 1 tab PO QDAY metoprolol succinate 50 mg tablet extended release 24 hr 1 tab PO QDAY clonazepam 1 mg tablet 1 tab PO BID PRN hydrochlorothiazide 12.5 mg capsule 1 cap PO QDAY Trintellix 20 mg tablet 1 tab PO QDAY Follow ups/Referrals Follow ups/Referrals: ALPHONSO CORLEY [Primary Care Provider] - 1 WEEK Reji Palma [STAFF PHYSICIAN] - 1 WEEK Instructions Instructions: Atherosclerosis Stand Alone Forms: Excuse From Work or School
[2022-09-09 17:37] VITALS: BP 110/61
--- NOTE | 2022-09-11 12:27 | DR.OPNOTE ---
OP NOTE Pre-Op Diagnosis: ocluded left iliac artery, critical limb ischemia left leg Post-Op Diagnosis: same Procedure Date Date Of Procedure: 09/09/22 Procedure: PROCEDURE: DIAGNOSTIC AORTOGRAM, IVUS LEFT ILIAC ARTERY, STENTING LEFT ILIAC ARTERY INTRASTETN STENOSIS\ NARRATIVE: Patient was taken to the operative suite and placed in the supine position. She was administered intravenous sedation which was supervised by myself. Time out for the procedure obtained. Ultrasound used to identify the left femoral artery and the skin overlying it infiltrated with 0. 5% Marcaine . Ultrasound used to guide puncture of the left femoral artery and a micro sheath placed over the guide wire into the left common femoral artery . Small wire exchanged for a 0. 035 inch Advantage glidewire and the micro sheath exchanged for a 5 fr vascular sheath. Ultimately this was upgraded to a 6 [place] sheet. Patient given 5000 units of intravenous heparin. Omni catheter placed over the wire which had been used to traverse the near complete occlusion of the left iliac stent. This had been documented by arteriogram . Omni catheter was used for aortogram showing the left iliac intrastent stenosis to be the only identifiable pathology. Omni catheter carried into the aorta. 0.035 inch wire exchanged for a 0.018 inch wire . Intravascular ultrasound placed over the 0.018 inch wire out showing significant plaque inside the mid portion of the previously placed stent Therefore, we placed a 8 mm by 57 mm balloon expandable stent and inflated it. Arteriogram showed excellent result. All devices removed. The sheath was removed and over the guide wire we placed an Angio seal device which was used to close the puncture of the left femoral artery. Dressing applied . Patietn given 30 mg of intravenous Protamine . Patient taken to same day surgery in good condition. Type of Anesthesia: Local (0.5% Marcaine ) Anesthesia Comment: plus MAC Findings: near complete occlusion of the left iliac artery stent Type of Fluids Used:: Lactated Ringers Total Amount of Fluid Infused:: 500cc EBL: <25cc Hardware: 8 mm x 57 mm left iliac stent placement Complications:: none Needle/Sponge Count:: correct Disposition/Condition: Pt. tolerated procedure without difficulty. Taken to [facility] in stable condition.
== END 2022-09-09 18:10 | disposition home or self-care (01) | DRG 254 ==
LOC: ICU 12:43
PROVIDERS: ADMIT Surgery; ATTEND Surgery
DX: R79.1 Abnormal coagulation profile; Z72.0 Tobacco use; I70.222 Atherosclerosis of native arteries of extremities with rest pain, left leg

== ENCOUNTER 2022-09-21 09:44 | Inpatient (IN) ==
[2022-09-21 11:26] VITALS: BMI 28.0
[2022-09-21] MEDS ORDERED: LOPRESSOR TAB 50 MG PO ONE (12:02)
[2022-09-21] MEDS ORDERED: HEPARIN SODIUM INJ 5000 UNITS IVP ONE (12:26)
[2022-09-21 12:49] LABS: BASOPHILS # (AUTO) 0.1 X10^3/uL (0.0-0.1); BASOPHILS % (AUTO) 0.7 % (0.2-1.0); EOSINOPHILS # (AUTO) 0.1 x10^3/uL (0.0-0.2); EOSINOPHILS % (AUTO) 1.4 % (0.9-2.9); HEMATOCRIT 41.4 % (36.0-47.0); HEMOGLOBIN 14.2 g/dL (12.0-16.0); LYMPHOCYTES # (AUTO) 2.2 X10^3/uL (1.3-2.9); LYMPHOCYTES % (AUTO) 25.1 % (21.0-51.0); MEAN CORPUSCULAR HEMOGLOBIN 29.3 pg (27.0-34.0); MEAN CORPUSCULAR HGB CONC 34.3 g/dL (33.0-35.0); MEAN CORPUSCULAR VOLUME 85.2 fL (80.0-100.0); MONOCYTES # (AUTO) 0.4 x10^3/uL (0.3-0.8); MONOCYTES % (AUTO) 4.9 % (0.0-13.0); NEUTROPHILS % (AUTO) 67.9 % (42.0-75.0); RED BLOOD COUNT 4.86 X10^6/uL (3.5-5.4); RED CELL DISTRIBUTION WIDTH 15.7 % (11.6-16.5); WHITE BLOOD COUNT 8.9 X10^3/uL (3.6-10.0)
[2022-09-21 12:52] LABS: BLOOD UREA NITROGEN 14 mg/dL (7-18); CALCIUM 8.8 mg/dL (8.5-10.1); CARBON DIOXIDE 31.5 mmol/L (21-32); CHLORIDE 105 mmol/L (98-107); CREATININE 1.13 mg/dL (0.55-1.02); SODIUM 143 mmol/L (136-145); eGFR NON BLACK RACES 54 (>60)
[2022-09-21 12:53] LABS: INR 1.03 (0.8-1.3)
[2022-09-21] MEDS: LR 1,000 ML IV 1,000 ML IV SCH (12:54)
[2022-09-21] MEDS: HEPARIN SODIUM IN D5W 25,000 UNITS/500 ML BAG IV PRN (13:40)
--- NOTE | 2022-09-21 14:22 | CT ---
CTA OF THE ABDOMEN AND PELVIS AND BILATERAL LOWER EXTREMITY RUNOFF WITHOUT AND WITH CONTRASTCLINICAL INDICATION: CRITICAL ISCHEMIA TO RIGHT LEGTECHNIQUE: Written informed consent was obtained. Noncontrast CTA images were initially obtained through the chest, abdomen pelvis, lower extremities. Non-gated spiral axial images of the lower thorax, abdomen, pelvis and lower extremities were obtained with nonionic intravenous contrast. 3D reconstructions were performed. Dose reduction techniques including Automated Exposure Control (AEC) and adjustment of mA and kV were utlized.COMPARISON:September 08, 2022FINDINGS:VASCULAR:Abdominal Aorta:No significant stenosis.Celiac [place]:No significant stenosis.Superior Mesenteric Artery:No significant stenosis.Renal Arteries:No significant stenosis.Inferior Mesenteric Artery:No significant stenosis.RIGHT PELVIS/LOWER EXTREMITY:Right Common Iliac Artery:No significant stenosis.Right Internal Iliac Artery:No significant stenosis.Right External Iliac Artery:No significant stenosis.Right Common Femoral Artery:No significant stenosis.Right Profunda Femoris Artery:No significant stenosis.Right Superficial Femoral Artery:No significant stenosis.Right Popliteal Artery:Completely occluded.Right Anterior Tibial Artery: Reconstituted via geniculate spot.Right Tibioperoneal Trunk:Completely occluded.Right Posterior Tibial Artery:Reconstituted via geniculate its with poor distal opacification.Right Peroneal Artery:Reconstituted via geniculate. Is poorly opacified distally.LEFT PELVIS/LOWER EXTREMITY:Left Common Iliac Artery:Recanalization of patient's left common iliac artery stent.Left Internal Iliac Artery:No significant stenosis.Left External Iliac Artery:No significant stenosis.Left Common Femoral Artery:No significant stenosis.Left Profunda Femoris Artery:No significant stenosis.Left Superficial Femoral Artery:No significant stenosis.Left Popliteal Artery:No significant stenosis.Left Anterior Tibial Artery:No significant stenosis. Crosses the ankle to supply the dorsalis pedis artery.Left Tibioperoneal Trunk:No significant stenosis.Left Posterior Tibial Artery:No significant stenosis. Crosses the ankle to supply the plantar arch.Left Peroneal Artery:No significant stenosis.Lung Bases: The heart is normal in size . No pericardial effusion. Mild atelectasis of the lung bases. No focal consolidations, pleural effusions or pneumothorax .CTA Abdomen and pelvis without contrast:No gallstones, renal stones or proximal ureteral stones.CTA Abdomen and pelvis with intravenous contrast: Liver and spleen are normal in size, enhancement characteristics and contour . No focal lesions . The portal vein is patent . No ductal dilitation.Gallbladder likely absent..The pancreas is unremarkable . Adrenal glands are normal . Kidneys enhance symmetrically without hydronephrosis .No bowel obstruction or inflammation. Normal appendix. No abnormal appearing mesenteric or retroperitoneal lymph nodes . No free fluid or fluid collections .Bladder is normal. Uterus present. No pelvic adenopathy or fluid collections.No aggressive osseous lesions.IMPRESSION:1. New complete occlusion of the right popliteal artery and tibioperoneal trunk.2. Poor distal opacification of the right anterior, posterior tibial arteries and right peroneal artery. Is unclear if this is due to timing or actual obstruction.3. Recanalization of patient's left common iliac artery stent.Electronically signed by: LULU HORNE (Sep 21, 2022 14:20:11)
[2022-09-21] MEDS: KLONOPIN TAB 1 MG PO SCH ×2 (14:54→21:00)
[2022-09-21] MEDS: NICOTINE PATCH TD SCH (16:28)
[2022-09-21] MEDS: DILAUDID INJ IVP PRN ×2 (16:29→21:03)
--- NOTE | 2022-09-21 18:08 | NOTE.SOAP ---
Soap Note Note for Day of Date of Exam: 09/21/22 Subjective Data Subjective Data: Se H & P. CTA shows new thrombus in the right popliteal and tib-peroneal trunk arteries. CTA 2weeks ago was normal on the right as left iliac intra-stent stenosis was treated. Left leg doing well. Patient continued her Xarelto 2.5 mg po BID and aspirin 81 mg po daily. Objective Data Temperature: 97.9 F Pulse Rate: 71 Respiratory Rate: 19 Blood Pressure: 160/92 O2 Sat by Pulse Oximetry: 100 Objective Data: Right foot warm with no palpable, pulses, left DP and PT pulses present. Assessment Assessment: Critical limb ischemia right leg. Plan Plan: Continue heparin drip, plan cardiac echo tomorrow. Plan peripheral thrombectomy right leg , possible angioplasty, possible stent.
[2022-09-21] MEDS: LOPRESSOR TAB 50 MG PO SCH (21:00)
[2022-09-22] MEDS: LR 1,000 ML IV 1,000 ML IV SCH ×2 (02:26→16:00)
[2022-09-22] MEDS: DILAUDID INJ IVP PRN ×5 (02:27→22:09)
[2022-09-22 02:40] LABS: BASOPHILS # (AUTO) 0.1 X10^3/uL (0.0-0.1); BASOPHILS % (AUTO) 1.5 % (0.2-1.0); EOSINOPHILS # (AUTO) 0.2 x10^3/uL (0.0-0.2); EOSINOPHILS % (AUTO) 2.2 % (0.9-2.9); HEMATOCRIT 37.1 % (36.0-47.0); HEMOGLOBIN 12.9 g/dL (12.0-16.0); LYMPHOCYTES # (AUTO) 3.4 X10^3/uL (1.3-2.9); LYMPHOCYTES % (AUTO) 40.7 % (21.0-51.0); MEAN CORPUSCULAR HEMOGLOBIN 29.5 pg (27.0-34.0); MEAN CORPUSCULAR HGB CONC 34.7 g/dL (33.0-35.0); MONOCYTES # (AUTO) 0.5 x10^3/uL (0.3-0.8); MONOCYTES % (AUTO) 5.4 % (0.0-13.0); NEUTROPHILS # (AUTO) 4.2 x10^3/uL (2.2-4.8); NEUTROPHILS % (AUTO) 50.2 % (42.0-75.0); RED BLOOD COUNT 4.37 X10^6/uL (3.5-5.4); RED CELL DISTRIBUTION WIDTH 15.6 % (11.6-16.5); WHITE BLOOD COUNT 8.4 X10^3/uL (3.6-10.0)
[2022-09-22 02:50] LABS: ALANINE AMINOTRANSFERASE 38 Units/L (12-78); ALBUMIN 3.1 g/dL (3.4-5.0); ALKALINE PHOSPHATASE 114 Units/L (46-116); ASPARTATE AMINO TRANSFERASE 42 Units/L (15-37); BLOOD UREA NITROGEN 12 mg/dL (7-18); CALCIUM 8.5 mg/dL (8.5-10.1); CARBON DIOXIDE 28.7 mmol/L (21-32); CHLORIDE 108 mmol/L (98-107); COR CA(FOR HYPOALB) 9.2 mg/dL (8.5-10.1); COR NA(FOR HYPERGLY) 143 mmol/L (136-145); CREATININE 1.01 mg/dL (0.55-1.02); SODIUM 142 mmol/L (136-145); TOTAL PROTEIN 5.9 g/dL (6.4-8.2); eGFR NON BLACK RACES > 60 (>60)
[2022-09-22] MEDS ORDERED: K-DUR TAB 20 MEQ PO PRN (02:57)
[2022-09-22] MEDS ORDERED: POTASSIUM CHL 40 MEQ/NS 0.45% 500 ML IV PRN (02:57)
[2022-09-22] MEDS ORDERED: K-RIDER 10 MEQ/NS 100 ML 10 MEQ/100 ML BAG IV PRN (02:57)
[2022-09-22] MEDS ORDERED: MICRO K EXTEN CAP 10 MEQ PO PRN (02:57)
[2022-09-22] MEDS ORDERED: POTASSIUM CHLORIDE LIQ 20 MEQ UDC PO PRN (02:57)
[2022-09-22] MEDS ORDERED: KLOR-CON PO PRN (02:57)
[2022-09-22] MEDS ORDERED: POTASSIUM CHL 60 MEQ/NS 0.45% 500 ML IV PRN (02:57)
[2022-09-22] MEDS: HEPARIN SODIUM INJ 5000 UNITS IVP ONE ×2 (03:14→15:57)
[2022-09-22] MEDS: MAGNESIUM SULFATE 1 GRAM/100 mL PREMIX 1 G/100 ML BAG IV PRN ×2 (03:33→05:30)
[2022-09-22] MEDS: KLONOPIN TAB 1 MG PO SCH ×3 (05:29→21:20)
[2022-09-22] MEDS ORDERED: GLUCOPHAGE PO SCH (07:00)
[2022-09-22] MEDS: ASPIRIN 81 MG CHEWTAB PO SCH (08:30)
[2022-09-22] MEDS: HYZAAR 50/12.5 MG PO SCH (08:30)
[2022-09-22] MEDS: NICOTINE PATCH TD SCH (08:31)
[2022-09-22] MEDS: HEPARIN SODIUM IN D5W 25,000 UNITS/500 ML BAG IV PRN (10:00)
[2022-09-22] MEDS ORDERED: HEPARIN SODIUM INJ 5000 UNITS IVP ONE ×2 (15:27)
[2022-09-22] MEDS ORDERED: PEPCID TAB 20 MG PO PRN (19:50)
[2022-09-22] MEDS: LOPRESSOR TAB 50 MG PO SCH (20:24)
[2022-09-23] MEDS: DILAUDID INJ IVP PRN ×7 (02:39→23:14)
[2022-09-23 02:54] LABS: BASOPHILS # (AUTO) 0.1 X10^3/uL (0.0-0.1); BASOPHILS % (AUTO) 0.9 % (0.2-1.0); EOSINOPHILS # (AUTO) 0.2 x10^3/uL (0.0-0.2); HEMATOCRIT 37.5 % (36.0-47.0); HEMOGLOBIN 12.7 g/dL (12.0-16.0); LYMPHOCYTES # (AUTO) 3.6 X10^3/uL (1.3-2.9); LYMPHOCYTES % (AUTO) 37.9 % (21.0-51.0); MEAN CORPUSCULAR HEMOGLOBIN 28.9 pg (27.0-34.0); MEAN CORPUSCULAR HGB CONC 33.9 g/dL (33.0-35.0); MEAN CORPUSCULAR VOLUME 85.2 fL (80.0-100.0); MONOCYTES # (AUTO) 0.6 x10^3/uL (0.3-0.8); NEUTROPHILS % (AUTO) 53.2 % (42.0-75.0); RED BLOOD COUNT 4.41 X10^6/uL (3.5-5.4); WHITE BLOOD COUNT 9.5 X10^3/uL (3.6-10.0)
[2022-09-23 03:03] LABS: ALANINE AMINOTRANSFERASE 46 Units/L (12-78); ALBUMIN 3.1 g/dL (3.4-5.0); ALKALINE PHOSPHATASE 110 Units/L (46-116); ASPARTATE AMINO TRANSFERASE 44 Units/L (15-37); BLOOD UREA NITROGEN 17 mg/dL (7-18); CARBON DIOXIDE 28.3 mmol/L (21-32); CHLORIDE 108 mmol/L (98-107); COR CA(FOR HYPOALB) 8.7 mg/dL (8.5-10.1); CREATININE 0.92 mg/dL (0.55-1.02); MAGNESIUM 1.7 mg/dL (2.0-2.9); SODIUM 142 mmol/L (136-145); eGFR NON BLACK RACES > 60 (>60)
[2022-09-23] MEDS: MAGNESIUM SULFATE 1 GRAM/100 mL PREMIX 1 G/100 ML BAG IV PRN ×2 (03:26→05:39)
[2022-09-23] MEDS: LR 1,000 ML IV 1,000 ML IV SCH ×4 (05:39→23:06)
[2022-09-23] MEDS: KLONOPIN TAB 1 MG PO SCH ×3 (05:39→21:15)
[2022-09-23] MEDS: HEPARIN SODIUM IN D5W 25,000 UNITS/500 ML BAG IV PRN (06:16)
--- NOTE | 2022-09-23 07:56 | NOTE.SOAP ---
Soap Note Note for Day of Date of Exam: 09/22/22 Subjective Data Subjective Data: Occluded right popliteal and tib- peroneal trunk. On heparin drip. Cardiac ECHO was done but no report yet. Objective Data Temperature: 97.0 F Pulse Rate: 75 Respiratory Rate: 24 Blood Pressure: 145/71 O2 Sat by Pulse Oximetry: 99 Objective Data: PTT 99, right foot cool but moves everything well right foot. Had stenting of left iliac artery intrastent stenosis 2 weeks prior and taht side is doing well. Assessment Assessment: Critical limb ischemia right leg Plan Plan: Tomorrow to OR for right LE arteriogram, probable peripheral based thrombectomy and balloon angioplasty right popliteal artery and right tibial peroneal trunk.
[2022-09-23] MEDS: NICOTINE PATCH TD SCH (08:32)
[2022-09-23] MEDS ORDERED: DIPRIVAN VIAL 20 ML ONE ×3 (08:41→11:10)
[2022-09-23] MEDS ORDERED: VERSED ONE (08:43)
[2022-09-23] MEDS ORDERED: FENTANYL VIAL INJ 100 mcg ONE (08:44)
[2022-09-23] MEDS ORDERED: NS 100 ML IV 100 ML ONE ×2 (09:17→09:42)
[2022-09-23] MEDS ORDERED: LR 1,000 ML IV 0 ML IV ONE (09:17)
[2022-09-23] MEDS ORDERED: ANCEF VIAL 1 GRAM ONE (09:17)
[2022-09-23] MEDS ORDERED: NS 1,000 ML IV 1,000 ML ONE ×2 (09:37→11:47)
[2022-09-23] MEDS ORDERED: HEPARIN SODIUM IN D5W 75,000 UNITS/1,500 ML BAG ONE (09:39)
[2022-09-23] MEDS ORDERED: OFIRMEV IV 1000 MG VIAL 1,000 MG/100 ML VIAL IV ONE (09:41)
[2022-09-23] MEDS ORDERED: MAGNESIUM SULFATE 50% INJ VIAL ONE (09:41)
[2022-09-23] MEDS ORDERED: MARCAINE 0.5% ONE (09:43)
[2022-09-23] MEDS ORDERED: XYLOCAINE 2 % (PLAIN) ONE (09:58)
[2022-09-23] MEDS ORDERED: PRECEDEX INJ VIAL IVP ONE (09:58)
[2022-09-23] MEDS ORDERED: KETAMINE HCL ONE (09:58)
[2022-09-23] MEDS ORDERED: ZOFRAN INJ 4 MG VIAL ONE (09:59)
[2022-09-23] MEDS ORDERED: PEPCID 20 MG VIAL ONE (09:59)
[2022-09-23] MEDS ORDERED: DECADRON INJ ONE (09:59)
[2022-09-23] MEDS ORDERED: TORADOL 30 MG VIAL ONE (10:15)
[2022-09-23] MEDS ORDERED: PROTAMINE SULFATE 50 MG VIAL ONE (10:15)
[2022-09-23] MEDS ORDERED: HEPARIN SODIUM INJ 5000 UNITS ONE ×2 (10:15→11:39)
[2022-09-23] MEDS ORDERED: EPHEDRINE SULFATE INJ ONE (10:19)
[2022-09-23] MEDS ORDERED: HEPARIN SODIUM IN D5W 25,000 UNITS/500 ML BAG ONE ×2 (10:51→11:47)
[2022-09-23] MEDS ORDERED: ACTIVASE CATHFLO ONE ×3 (10:53→11:49)
[2022-09-23] MEDS: ACTIVASE CATHFLO 12 MG in NS 250 ML IV 228 ML IV SCH ×2 (12:00→23:16)
[2022-09-23] MEDS ORDERED: HEPARIN SODIUM IN D5W 25,000 UNITS/500 ML BAG INTRACATH PRN (12:37)
[2022-09-23] MEDS ORDERED: ACTIVASE CATHFLO 12 MG in NS 250 ML IV 228 ML INTRACATH ONE ×6 (12:37)
--- NOTE | 2022-09-23 12:51 | OR.IMMED ---
IMMEDIATE POST-OP NOTE Immediate Post-Op Note Pre-Op Diagnosis: Critical limb ischemia right leg with thrombosis of distal rig ht popliteal and tibial peroneal trunk arteries Post-Op Diagnosis: same, thrombosis proximal right anterior tibial artery ,thrombosis right peroneal and posterior tibial arteries Procedure: Aortogram , arteriogram right lower extremity, Angiojet thrombectomy of the right distal popliteal artery and tibial peroneal trunk, angioplasty right tibial peroneal trunk, angioplasty right peroneal artery , placement of EKOS thrombolysis catheter into right peroneal artery and into the right tibial- peroneal trunk Description of Procedure: see operative summary Surgeon/[employer] Supervisor: Louie Findings: Thrombosis of right distal popliteal artery extending into the tibial peroneal trunk, proximal take off of the right anterior tibial artery and of the peroneal and posterior tibial arteries nearly to the ankle . Estimated Blood Loss: 100 cc Complications: none Progress Notes: patient to return to ICU where she willl be maintained on a TPA drip, coolant drip and Heparin drip. Will return to the operating room tomorrow for repeat arteriogram and possible angioplasty of distal vessels right leg Final Diagnosis: as above
[2022-09-23] MEDS: NS 500 ML IV 500 ML IV SCH (13:00)
[2022-09-23] MEDS ORDERED: NS 500 ML IV 500 ML IV SCH (13:00)
[2022-09-23 13:08] LABS: BASOPHILS % (AUTO) 0.6 % (0.2-1.0); EOSINOPHILS # (AUTO) 0.1 x10^3/uL (0.0-0.2); HEMATOCRIT 38.8 % (36.0-47.0); HEMOGLOBIN 13.1 g/dL (12.0-16.0); LYMPHOCYTES # (AUTO) 1.4 X10^3/uL (1.3-2.9); MEAN CORPUSCULAR HGB CONC 33.9 g/dL (33.0-35.0); MEAN CORPUSCULAR VOLUME 85.6 fL (80.0-100.0); MONOCYTES # (AUTO) 0.2 x10^3/uL (0.3-0.8); MONOCYTES % (AUTO) 2.2 % (0.0-13.0); NEUTROPHILS % (AUTO) 80.2 % (42.0-75.0); RED BLOOD COUNT 4.53 X10^6/uL (3.5-5.4); RED CELL DISTRIBUTION WIDTH 15.9 % (11.6-16.5); WHITE BLOOD COUNT 8.7 X10^3/uL (3.6-10.0)
[2022-09-23] MEDS: ASPIRIN 81 MG CHEWTAB PO SCH (15:41)
[2022-09-23] MEDS: HYZAAR 50/12.5 MG PO SCH (15:42)
--- NOTE | 2022-09-23 19:11 | DR.UPDATE ---
H&P UPDATE Review Yes Any changes to H&P?: No Patient was examined?: Yes
[2022-09-23] MEDS ORDERED: AMBIEN PO PRN (20:01)
[2022-09-23 20:23] LABS: BASOPHILS # (AUTO) 0.1 X10^3/uL (0.0-0.1); BASOPHILS % (AUTO) 0.7 % (0.2-1.0); HEMATOCRIT 37.5 % (36.0-47.0); HEMOGLOBIN 12.8 g/dL (12.0-16.0); LYMPHOCYTES # (AUTO) 0.9 X10^3/uL (1.3-2.9); LYMPHOCYTES % (AUTO) 9.6 % (21.0-51.0); MEAN CORPUSCULAR HEMOGLOBIN 29.1 pg (27.0-34.0); MEAN CORPUSCULAR HGB CONC 34.1 g/dL (33.0-35.0); MEAN CORPUSCULAR VOLUME 85.3 fL (80.0-100.0); MEAN PLATELET VOLUME 7.9 fL (7.4-11.0); MONOCYTES # (AUTO) 0.2 x10^3/uL (0.3-0.8); MONOCYTES % (AUTO) 2.2 % (0.0-13.0); NEUTROPHILS # (AUTO) 7.9 x10^3/uL (2.2-4.8); NEUTROPHILS % (AUTO) 87.5 % (42.0-75.0); RED BLOOD COUNT 4.39 X10^6/uL (3.5-5.4); RED CELL DISTRIBUTION WIDTH 15.6 % (11.6-16.5)
[2022-09-23] MEDS: LOPRESSOR TAB 50 MG PO SCH (21:14)
[2022-09-23] MEDS ORDERED: NS 250 ML IV 250 ML IV ONE (22:45)
[2022-09-24 01:20] LABS: BASOPHILS # (AUTO) 0.1 X10^3/uL (0.0-0.1); BASOPHILS % (AUTO) 0.5 % (0.2-1.0); HEMATOCRIT 36.2 % (36.0-47.0); HEMOGLOBIN 12.5 g/dL (12.0-16.0); LYMPHOCYTES # (AUTO) 1.2 X10^3/uL (1.3-2.9); LYMPHOCYTES % (AUTO) 11.1 % (21.0-51.0); MEAN CORPUSCULAR HEMOGLOBIN 29.3 pg (27.0-34.0); MEAN CORPUSCULAR HGB CONC 34.4 g/dL (33.0-35.0); MEAN CORPUSCULAR VOLUME 85.2 fL (80.0-100.0); MEAN PLATELET VOLUME 8.3 fL (7.4-11.0); MONOCYTES # (AUTO) 0.5 x10^3/uL (0.3-0.8); NEUTROPHILS # (AUTO) 9.4 x10^3/uL (2.2-4.8); NEUTROPHILS % (AUTO) 84.4 % (42.0-75.0); RED BLOOD COUNT 4.26 X10^6/uL (3.5-5.4); WHITE BLOOD COUNT 11.2 X10^3/uL (3.6-10.0)
[2022-09-24] MEDS: DILAUDID INJ IVP PRN ×2 (01:34→05:33)
[2022-09-24] MEDS ORDERED: PERCOCET TAB 5/325 MG PO ONE (01:42)
[2022-09-24] MEDS: NS 500 ML IV 500 ML IV SCH (03:20)
[2022-09-24] MEDS: KLONOPIN TAB 1 MG PO SCH ×2 (05:32→14:01)
[2022-09-24] MEDS: LR 1,000 ML IV 1,000 ML IV SCH (06:54)
[2022-09-24] MEDS ORDERED: MARCAINE 0.5% ONE (06:56)
[2022-09-24] MEDS ORDERED: HEPARIN SODIUM IN D5W 75,000 UNITS/1,500 ML BAG ONE (06:57)
[2022-09-24 07:28] LABS: BASOPHILS % (AUTO) 0.4 % (0.2-1.0); EOSINOPHILS % (AUTO) 0.1 % (0.9-2.9); HEMATOCRIT 36.8 % (36.0-47.0); HEMOGLOBIN 12.5 g/dL (12.0-16.0); LYMPHOCYTES # (AUTO) 2.4 X10^3/uL (1.3-2.9); LYMPHOCYTES % (AUTO) 18.2 % (21.0-51.0); MEAN CORPUSCULAR HEMOGLOBIN 29.1 pg (27.0-34.0); MEAN CORPUSCULAR HGB CONC 33.9 g/dL (33.0-35.0); MEAN PLATELET VOLUME 8.2 fL (7.4-11.0); MONOCYTES # (AUTO) 0.7 x10^3/uL (0.3-0.8); MONOCYTES % (AUTO) 5.2 % (0.0-13.0); NEUTROPHILS # (AUTO) 10.1 x10^3/uL (2.2-4.8); NEUTROPHILS % (AUTO) 76.1 % (42.0-75.0); RED BLOOD COUNT 4.28 X10^6/uL (3.5-5.4); RED CELL DISTRIBUTION WIDTH 15.5 % (11.6-16.5); WHITE BLOOD COUNT 13.2 X10^3/uL (3.6-10.0)
[2022-09-24] MEDS ORDERED: ANCEF VIAL 1 GRAM ONE (07:31)
[2022-09-24] MEDS ORDERED: LR 1,000 ML IV 1,000 ML IV ONE (07:31)
[2022-09-24] MEDS ORDERED: FENTANYL VIAL INJ 100 mcg ONE (07:31)
[2022-09-24] MEDS ORDERED: VERSED ONE (07:31)
[2022-09-24] MEDS ORDERED: DIPRIVAN VIAL 40 ML ONE (07:31)
[2022-09-24] MEDS ORDERED: NS 100 ML IV 100 ML ONE (07:32)
[2022-09-24] MEDS ORDERED: KETAMINE HCL ONE (08:28)
[2022-09-24] MEDS ORDERED: PRECEDEX INJ VIAL IVP ONE ×2 (08:46→08:47)
[2022-09-24] MEDS ORDERED: TORADOL 30 MG VIAL ONE (09:53)
[2022-09-24] MEDS: NICOTINE PATCH TD SCH (11:46)
[2022-09-24] MEDS: ASPIRIN 81 MG CHEWTAB PO SCH (11:46)
[2022-09-24] MEDS: HYZAAR 50/12.5 MG PO SCH (11:46)
[2022-09-24 12:58] LABS: BASOPHILS % (AUTO) 0.4 % (0.2-1.0); EOSINOPHILS # (AUTO) 0.1 x10^3/uL (0.0-0.2); EOSINOPHILS % (AUTO) 0.5 % (0.9-2.9); HEMATOCRIT 37.6 % (36.0-47.0); HEMOGLOBIN 12.8 g/dL (12.0-16.0); LYMPHOCYTES # (AUTO) 2.9 X10^3/uL (1.3-2.9); LYMPHOCYTES % (AUTO) 23.3 % (21.0-51.0); MEAN CORPUSCULAR HEMOGLOBIN 29.1 pg (27.0-34.0); MEAN CORPUSCULAR HGB CONC 33.9 g/dL (33.0-35.0); MEAN CORPUSCULAR VOLUME 85.8 fL (80.0-100.0); MEAN PLATELET VOLUME 7.9 fL (7.4-11.0); MONOCYTES # (AUTO) 0.5 x10^3/uL (0.3-0.8); MONOCYTES % (AUTO) 3.6 % (0.0-13.0); NEUTROPHILS # (AUTO) 9.1 x10^3/uL (2.2-4.8); NEUTROPHILS % (AUTO) 72.2 % (42.0-75.0); RED BLOOD COUNT 4.39 X10^6/uL (3.5-5.4); RED CELL DISTRIBUTION WIDTH 15.7 % (11.6-16.5); WHITE BLOOD COUNT 12.6 X10^3/uL (3.6-10.0)
[2022-09-24] MEDS ORDERED: XARELTO PO NR (14:00)
--- NOTE | 2022-09-24 14:19 | OR.IMMED ---
IMMEDIATE POST-OP NOTE Immediate Post-Op Note Pre-Op Diagnosis: Critical limb ischemia right leg with thrombosis Post-Op Diagnosis: Same, plus on top of thrombosis is significant atherosclerosis of the right popliteal and tibial - peroneal trunk Procedure: arteriogram right leg, angioplasty right anterior tibial artery takeoff, Drug coated balloon angioplasty(4mm) of right tibial -peroneal trunk, drug coated balloon angioplasty ( 5mm) right popliteal artery Description of Procedure: see operative summary Surgeon/Oracle Engineer: Louie Findings: as above, see dictation for details Estimated Blood Loss: 50 cc Complications: none Discharge Progress Notes: Discharge back to CCU on heparin drip Final Diagnosis: as above
[2022-09-24 14:26] VITALS: BP 167/76
--- NOTE | 2022-09-24 19:23 | W.DIS.FURT ---
Summary of Discharge Discharge Summary of Date Date of Exam: 09/24/22 Admission Date Date of Admission: 09/21/22 Admission Diagnosis Hospital Course: This is a 52 year old female with significant history of tobacco abuse who has required stenting of the left iliac artery for complete occlusion in the past, most recently two weeks ago where she had severe intrastent stenosis requiring additional stent place. This is a presumably due to her continued tobacco abuse. CT angiogram at that time showed no obvious problem with the right leg. She presented at her second follow up 09/21/2022, approximately two weeks post procedure complaining of increasing pain of the right leg with walking. I could detect no Doppler signal in the ankle or the foot on the right side and she was admitted and placed on a Heparin drip. Follow-up CT angiogram showed occlusion of the right popliteal and tibial peroneal trunk arteries presumable due to thrombus. However she was on low dose of Xarelto and aspirin .There was no evidence of atrial fibrillation .She had and echocardiogram the following day and continued on the Heparin drip. The results of echocardiogram are still pending. 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 The anterior tibial artery was ballooned with a regular 3 mm angioplasty balloon , the tibial -peroneal trunk with a 4 mm drug coated balloon and the popliteal artery with a 5 mm drug coated ballon. She has done well. She has excellent doppler signal at the ankle and will be discharged home on Xarelto 15 mg BID , aspirin 81 mg by mouth daily , her usual medications and Percocet 5 mg tablets 1 every 6 hours PRN pain. She will follow up with me next week. Vital Signs: Vital Signs (72 hours) 09/23/22 08:01 09/21/22 19:30 09/21/22 19:45 Temperature 97.0 F L Pulse Rate 75 61 69 Respiratory Rate 24 11 L 21 Blood Pressure 145/71 O2 Sat by Pulse Oximetry 99 99 100 Oxygen Delivery Method Oxygen Flow Rate FIO2% 09/21/22 20:00 09/21/22 20:00 09/21/22 20:16 Temperature Pulse Rate 68 Respiratory Rate 16 Blood Pressure 153/86 O2 Sat by Pulse Oximetry 99 Oxygen Delivery Method Nasal Cannula Oxygen Flow Rate 2 FIO2% 28 09/21/22 21:03 09/21/22 20:15 09/21/22 20:30 Temperature Pulse Rate 68 63 Respiratory Rate 16 23 15 Blood Pressure O2 Sat by Pulse Oximetry 99 97 Oxygen Delivery Method Oxygen Flow Rate FIO2% 09/21/22 20:45 09/21/22 21:00 09/21/22 21:00 Temperature Pulse Rate 64 72 Respiratory Rate 37 H 26 H Blood Pressure 114/69 O2 Sat by Pulse Oximetry 98 98 Oxygen Delivery Method Oxygen Flow Rate FIO2% 09/21/22 21:15 09/21/22 21:30 09/21/22 21:45 Temperature Pulse Rate 80 64 72 Respiratory Rate 30 H 12 26 H Blood Pressure O2 Sat by Pulse Oximetry 98 99 99 Oxygen Delivery Method Oxygen Flow Rate FIO2% 09/21/22 22:00 09/21/22 22:00 09/21/22 21:33 Temperature Pulse Rate 63 Respiratory Rate 10 L 18 Blood Pressure 135/71 O2 Sat by Pulse Oximetry 96 Oxygen Delivery Method Oxygen Flow Rate FIO2% 09/21/22 22:15 09/21/22 22:30 09/21/22 22:45 Temperature Pulse Rate 66 62 66 Respiratory Rate 14 11 L 11 L Blood Pressure O2 Sat by Pulse Oximetry 96 94 L 95 Oxygen Delivery Method Oxygen Flow Rate FIO2% 09/21/22 23:00 09/21/22 23:00 09/21/22 23:15 Temperature Pulse Rate 69 60 Respiratory Rate 17 13 Blood Pressure 147/73 O2 Sat by Pulse Oximetry 94 L 96 Oxygen Delivery Method Oxygen Flow Rate FIO2% 09/21/22 23:30 09/21/22 23:45 09/22/22 00:00 Temperature Pulse Rate 77 62 Respiratory Rate 34 H 12 Blood Pressure 111/56 O2 Sat by Pulse Oximetry 99 Oxygen Delivery Method Oxygen Flow Rate FIO2% 09/22/22 00:00 09/22/22 00:42 09/22/22 00:15 Temperature 98.3 F Pulse Rate 69 64 Respiratory Rate 13 15 Blood Pressure O2 Sat by Pulse Oximetry 97 95 Oxygen Delivery Method Oxygen Flow Rate FIO2% 09/22/22 00:30 09/22/22 00:45 09/22/22 01:00 Temperature Pulse Rate 64 65 Respiratory Rate 14 22 Blood Pressure 111/60 O2 Sat by Pulse Oximetry 95 97 Oxygen Delivery Method Oxygen Flow Rate FIO2% 09/22/22 01:00 09/22/22 02:27 09/22/22 01:15 Temperature Pulse Rate 66 67 Respiratory Rate 17 16 14 Blood Pressure O2 Sat by Pulse Oximetry 98 99 Oxygen Delivery Method Oxygen Flow Rate FIO2% 09/22/22 01:30 09/22/22 01:45 09/22/22 02:00 Temperature Pulse Rate 67 67 Respiratory Rate 14 18 Blood Pressure 104/60 O2 Sat by Pulse Oximetry 98 98 Oxygen Delivery Method Oxygen Flow Rate FIO2% 09/22/22 02:00 09/22/22 02:15 09/22/22 02:57 Temperature Pulse Rate 67 65 Respiratory Rate 13 13 16 Blood Pressure O2 Sat by Pulse Oximetry 97 97 Oxygen Delivery Method Oxygen Flow Rate FIO2% 09/22/22 02:31 09/22/22 02:45 09/22/22 03:00 Temperature Pulse Rate 66 62 Respiratory Rate 17 10 L Blood Pressure 127/70 O2 Sat by Pulse Oximetry 97 98 Oxygen Delivery Method Oxygen Flow Rate FIO2% 09/22/22 03:00 09/22/22 03:15 09/22/22 03:35 Temperature 97.6 F Pulse Rate 61 62 74 Respiratory Rate 17 12 24 Blood Pressure O2 Sat by Pulse Oximetry 97 95 98 Oxygen Delivery Method Oxygen Flow Rate FIO2% 09/22/22 03:45 09/22/22 04:00 09/22/22 04:00 Temperature Pulse Rate 61 64 Respiratory Rate 17 13 Blood Pressure 121/65 O2 Sat by Pulse Oximetry 98 97 Oxygen Delivery Method Oxygen Flow Rate FIO2% 09/22/22 04:15 09/22/22 04:30 09/22/22 04:45 Temperature Pulse Rate 60 59 L 59 L Respiratory Rate 13 12 15 Blood Pressure O2 Sat by Pulse Oximetry 94 L 95 95 Oxygen Delivery Method Oxygen Flow Rate FIO2% 09/22/22 05:00 09/22/22 05:00 09/22/22 05:15 Temperature Pulse Rate 59 L 64 Respiratory Rate 11 L 14 Blood Pressure 114/64 O2 Sat by Pulse Oximetry 95 95 Oxygen Delivery Method Oxygen Flow Rate FIO2% 09/22/22 05:30 09/22/22 05:45 09/22/22 06:00 Temperature Pulse Rate 78 60 Respiratory Rate 35 H 7 L Blood Pressure 122/71 O2 Sat by Pulse Oximetry 98 100 Oxygen Delivery Method Oxygen Flow Rate FIO2% 09/22/22 06:00 09/22/22 06:15 09/22/22 10:07 Temperature Pulse Rate 60 61 Respiratory Rate 10 L 11 L 22 Blood Pressure O2 Sat by Pulse Oximetry 98 99 Oxygen Delivery Method Oxygen Flow Rate FIO2% 09/22/22 14:25 09/22/22 18:27 09/22/22 06:30 Temperature Pulse Rate 61 Respiratory Rate 20 22 12 Blood Pressure O2 Sat by Pulse Oximetry 96 Oxygen Delivery Method Oxygen Flow Rate FIO2% 09/22/22 06:45 09/22/22 07:00 09/22/22 07:00 Temperature Pulse Rate 60 60 Respiratory Rate 13 12 Blood Pressure 107/63 O2 Sat by Pulse Oximetry 95 95 Oxygen Delivery Method Room Air Oxygen Flow Rate FIO2% 09/22/22 07:15 09/22/22 07:30 09/22/22 07:45 Temperature Pulse Rate 61 69 74 Respiratory Rate 14 15 Blood Pressure O2 Sat by Pulse Oximetry 96 96 100 Oxygen Delivery Method Oxygen Flow Rate FIO2% 09/22/22 08:00 09/22/22 08:00 09/22/22 08:15 Temperature 97.6 F Pulse Rate 77 66 Respiratory Rate Blood Pressure 119/59 O2 Sat by Pulse Oximetry 95 97 Oxygen Delivery Method Room Air Oxygen Flow Rate FIO2% 09/22/22 08:32 09/22/22 08:50 09/22/22 07:00 Temperature Pulse Rate 76 Respiratory Rate 25 H 24 Blood Pressure O2 Sat by Pulse Oximetry 98 Oxygen Delivery Method Room Air Room Air Oxygen Flow Rate 2 FIO2% 28 09/22/22 10:37 09/22/22 08:45 09/22/22 09:00 Temperature Pulse Rate 69 77 Respiratory Rate 20 15 17 Blood Pressure O2 Sat by Pulse Oximetry 98 100 Oxygen Delivery Method Room Air Oxygen Flow Rate FIO2% 09/22/22 09:01 09/22/22 09:01 09/22/22 09:15 Temperature Pulse Rate 79 79 Respiratory Rate Blood Pressure 130/75 O2 Sat by Pulse Oximetry 100 99 Oxygen Delivery Method Oxygen Flow Rate FIO2% 09/22/22 09:30 09/22/22 09:45 12/14/22 10:00 Temperature Pulse Rate 74 67 Respiratory Rate 16 19 Blood Pressure 111/63 O2 Sat by Pulse Oximetry 100 96 Oxygen Delivery Method Oxygen Flow Rate FIO2% 09/22/22 10:00 09/22/22 10:15 09/22/22 10:30 Temperature Pulse Rate 71 66 66 Respiratory Rate 17 15 13 Blood Pressure O2 Sat by Pulse Oximetry 97 95 94 L Oxygen Delivery Method Room Air Oxygen Flow Rate FIO2% 09/22/22 10:45 09/22/22 11:00 09/22/22 11:00 Temperature Pulse Rate 68 73 Respiratory Rate 13 18 Blood Pressure 101/52 O2 Sat by Pulse Oximetry 93 L 94 L Oxygen Delivery Method Room Air Oxygen Flow Rate FIO2% 09/22/22 11:15 09/22/22 11:30 09/22/22 11:45 Temperature Pulse Rate 77 72 78 Respiratory Rate 20 16 Blood Pressure O2 Sat by Pulse Oximetry 96 96 98 Oxygen Delivery Method Oxygen Flow Rate FIO2% 09/22/22 12:00 09/22/22 12:00 09/22/22 12:15 Temperature Pulse Rate 70 68 Respiratory Rate 14 13 Blood Pressure 119/64 O2 Sat by Pulse Oximetry 94 L 96 Oxygen Delivery Method Room Air Oxygen Flow Rate FIO2% 09/22/22 12:29 09/22/22 13:04 09/22/22 13:06 Temperature Pulse Rate 88 79 Respiratory Rate Blood Pressure 119/82 O2 Sat by Pulse Oximetry 99 97 Oxygen Delivery Method Oxygen Flow Rate FIO2% 09/22/22 13:15 09/22/22 13:30 09/22/22 13:45 Temperature Pulse Rate 72 67 67 Respiratory Rate 13 15 Blood Pressure O2 Sat by Pulse Oximetry 97 98 96 Oxygen Delivery Method Oxygen Flow Rate FIO2% 09/22/22 14:55 09/22/22 14:00 09/22/22 14:15 Temperature Pulse Rate 80 80 Respiratory Rate 22 Blood Pressure O2 Sat by Pulse Oximetry 98 98 Oxygen Delivery Method Room Air Oxygen Flow Rate FIO2% 09/22/22 14:30 09/22/22 14:45 09/22/22 15:00 Temperature Pulse Rate 73 70 72 Respiratory Rate 22 16 Blood Pressure O2 Sat by Pulse Oximetry 97 95 97 Oxygen Delivery Method Room Air Oxygen Flow Rate FIO2% 09/22/22 15:16 09/22/22 15:30 09/22/22 15:45 Temperature Pulse Rate 88 73 73 Respiratory Rate Blood Pressure O2 Sat by Pulse Oximetry 96 97 93 L Oxygen Delivery Method Oxygen Flow Rate FIO2% 09/22/22 16:00 09/22/22 16:15 09/22/22 16:30 Temperature 98 F Pulse Rate 74 76 73 Respiratory Rate 16 17 Blood Pressure O2 Sat by Pulse Oximetry 95 98 94 L Oxygen Delivery Method Room Air Oxygen Flow Rate FIO2% 09/22/22 16:45 09/22/22 17:00 09/22/22 17:15 Temperature Pulse Rate 76 89 81 Respiratory Rate 15 18 Blood Pressure O2 Sat by Pulse Oximetry 93 L 96 Oxygen Delivery Method Nasal Cannula Oxygen Flow Rate FIO2% 09/22/22 17:30 09/22/22 17:45 09/22/22 18:01 Temperature Pulse Rate 81 79 76 Respiratory Rate 22 15 Blood Pressure O2 Sat by Pulse Oximetry 98 99 97 Oxygen Delivery Method Room Air Oxygen Flow Rate FIO2% 09/22/22 18:57 09/22/22 19:00 09/22/22 18:15 Temperature Pulse Rate 82 Respiratory Rate 22 16 Blood Pressure O2 Sat by Pulse Oximetry 98 Oxygen Delivery Method Room Air Oxygen Flow Rate FIO2% 09/22/22 18:30 09/22/22 18:38 09/22/22 18:38 Temperature Pulse Rate 79 80 Respiratory Rate 14 28 H Blood Pressure 131/85 O2 Sat by Pulse Oximetry 99 97 Oxygen Delivery Method Oxygen Flow Rate FIO2% 09/22/22 18:45 09/22/22 19:00 09/22/22 19:00 Temperature Pulse Rate 80 79 Respiratory Rate 17 23 Blood Pressure 132/74 O2 Sat by Pulse Oximetry 98 97 Oxygen Delivery Method Oxygen Flow Rate FIO2% 09/22/22 19:15 09/22/22 19:30 09/22/22 19:45 Temperature 97.0 F L Pulse Rate 76 80 69 Respiratory Rate 22 21 7 L Blood Pressure O2 Sat by Pulse Oximetry 97 99 98 Oxygen Delivery Method Oxygen Flow Rate FIO2% 09/22/22 20:29 09/22/22 20:00 09/22/22 20:15 Temperature Pulse Rate 80 70 Respiratory Rate 23 13 Blood Pressure 145/71 O2 Sat by Pulse Oximetry 98 98 Oxygen Delivery Method Oxygen Flow Rate FIO2% 09/22/22 22:09 09/22/22 20:46 09/22/22 20:28 Temperature Pulse Rate Respiratory Rate 16 Blood Pressure 145/71 O2 Sat by Pulse Oximetry Oxygen Delivery Method Nasal Cannula Oxygen Flow Rate 2 FIO2% 28 09/22/22 20:28 09/22/22 20:30 09/22/22 20:54 Temperature Pulse Rate 75 73 84 Respiratory Rate 24 16 28 H Blood Pressure O2 Sat by Pulse Oximetry 99 99 95 Oxygen Delivery Method Oxygen Flow Rate FIO2% 09/22/22 21:00 09/22/22 21:00 09/22/22 21:15 Temperature Pulse Rate 69 79 Respiratory Rate 0 L 7 L Blood Pressure 125/67 O2 Sat by Pulse Oximetry 99 100 Oxygen Delivery Method Oxygen Flow Rate FIO2% 09/22/22 21:30 09/22/22 21:45 09/22/22 22:00 Temperature Pulse Rate 75 77 Respiratory Rate 13 14 Blood Pressure 132/68 O2 Sat by Pulse Oximetry 100 100 Oxygen Delivery Method Oxygen Flow Rate FIO2% 09/22/22 22:00 09/22/22 22:39 09/22/22 22:15 Temperature Pulse Rate 70 72 Respiratory Rate 14 18 15 Blood Pressure O2 Sat by Pulse Oximetry 99 100 Oxygen Delivery Method Oxygen Flow Rate FIO2% 09/22/22 22:30 09/22/22 22:45 09/22/22 23:00 Temperature Pulse Rate 65 67 Respiratory Rate 12 12 Blood Pressure 113/56 O2 Sat by Pulse Oximetry 97 97 Oxygen Delivery Method Oxygen Flow Rate FIO2% 09/22/22 23:00 09/22/22 23:15 09/22/22 23:30 Temperature Pulse Rate 72 73 83 Respiratory Rate 12 13 Blood Pressure O2 Sat by Pulse Oximetry 97 96 94 L Oxygen Delivery Method Oxygen Flow Rate FIO2% 09/22/22 23:45 09/23/22 00:00 09/23/22 00:00 Temperature 97.6 F Pulse Rate 69 70 Respiratory Rate 13 15 Blood Pressure 121/67 O2 Sat by Pulse Oximetry 100 99 Oxygen Delivery Method Oxygen Flow Rate FIO2% 09/23/22 00:15 09/23/22 00:30 09/23/22 00:45 Temperature Pulse Rate 73 65 66 Respiratory Rate 16 12 13 Blood Pressure O2 Sat by Pulse Oximetry 99 99 99 Oxygen Delivery Method Oxygen Flow Rate FIO2% 09/23/22 01:01 09/23/22 01:15 09/23/22 01:30 Temperature Pulse Rate 66 68 72 Respiratory Rate 13 14 15 Blood Pressure O2 Sat by Pulse Oximetry 98 98 97 Oxygen Delivery Method Oxygen Flow Rate FIO2% 09/23/22 01:41 09/23/22 01:45 09/23/22 02:00 Temperature Pulse Rate 74 71 Respiratory Rate 16 15 Blood Pressure 103/59 O2 Sat by Pulse Oximetry 98 98 Oxygen Delivery Method Oxygen Flow Rate FIO2% 09/23/22 02:01 09/23/22 02:01 09/23/22 02:39 Temperature Pulse Rate 72 Respiratory Rate 22 16 Blood Pressure 127/61 O2 Sat by Pulse Oximetry 98 Oxygen Delivery Method Oxygen Flow Rate FIO2% 09/23/22 03:09 09/23/22 02:15 09/23/22 02:30 Temperature Pulse Rate 78 66 Respiratory Rate 18 36 H 14 Blood Pressure O2 Sat by Pulse Oximetry 97 99 Oxygen Delivery Method Oxygen Flow Rate FIO2% 09/23/22 03:23 09/23/22 03:28 09/23/22 03:28 Temperature Pulse Rate 68 71 Respiratory Rate 20 Blood Pressure 113/80 O2 Sat by Pulse Oximetry 97 Oxygen Delivery Method Oxygen Flow Rate FIO2% 09/23/22 03:30 09/23/22 03:45 09/23/22 03:58 Temperature Pulse Rate 65 59 L 57 L Respiratory Rate 12 12 12 Blood Pressure O2 Sat by Pulse Oximetry 97 96 97 Oxygen Delivery Method Oxygen Flow Rate FIO2% 09/23/22 04:00 09/23/22 04:01 09/23/22 04:15 Temperature 97.7 F Pulse Rate 58 L 61 Respiratory Rate 11 L 11 L Blood Pressure 102/59 O2 Sat by Pulse Oximetry 98 98 Oxygen Delivery Method Oxygen Flow Rate FIO2% 09/23/22 04:30 09/23/22 04:45 09/23/22 05:00 Temperature Pulse Rate 64 65 70 Respiratory Rate 13 16 27 H Blood Pressure O2 Sat by Pulse Oximetry 97 97 96 Oxygen Delivery Method Oxygen Flow Rate FIO2% 09/23/22 05:11 09/23/22 05:11 09/23/22 05:15 Temperature Pulse Rate 67 61 Respiratory Rate 11 L 11 L Blood Pressure 120/61 O2 Sat by Pulse Oximetry 99 96 Oxygen Delivery Method Oxygen Flow Rate FIO2% 09/23/22 05:30 09/23/22 05:45 09/23/22 06:00 Temperature Pulse Rate 62 60 67 Respiratory Rate 10 L 13 21 Blood Pressure O2 Sat by Pulse Oximetry 100 96 98 Oxygen Delivery Method Oxygen Flow Rate FIO2% 09/23/22 06:02 09/23/22 06:02 09/23/22 06:02 Temperature Pulse Rate 63 Respiratory Rate 11 L Blood Pressure 119/64 119/64 O2 Sat by Pulse Oximetry 99 Oxygen Delivery Method Oxygen Flow Rate FIO2% 09/23/22 06:15 09/23/22 06:30 09/23/22 06:45 Temperature Pulse Rate 63 66 65 Respiratory Rate 12 13 22 Blood Pressure O2 Sat by Pulse Oximetry 98 98 99 Oxygen Delivery Method Oxygen Flow Rate FIO2% 09/23/22 07:00 09/23/22 07:00 09/23/22 07:15 Temperature Pulse Rate 60 64 Respiratory Rate 10 L 12 Blood Pressure 113/66 O2 Sat by Pulse Oximetry 97 97 Oxygen Delivery Method Oxygen Flow Rate FIO2% 09/23/22 07:30 09/23/22 07:45 09/23/22 08:00 Temperature Pulse Rate 58 L 62 63 Respiratory Rate 20 Blood Pressure O2 Sat by Pulse Oximetry 97 96 96 Oxygen Delivery Method Room Air Oxygen Flow Rate FIO2% 09/23/22 08:01 09/23/22 08:01 09/23/22 09:16 Temperature 97.6 F Pulse Rate 61 63 Respiratory Rate 20 Blood Pressure 96/51 126/77 O2 Sat by Pulse Oximetry 98 100 Oxygen Delivery Method Room Air Oxygen Flow Rate FIO2% 09/23/22 08:30 09/23/22 07:00 09/23/22 10:15 Temperature Pulse Rate Respiratory Rate 16 Blood Pressure O2 Sat by Pulse Oximetry Oxygen Delivery Method Nasal Cannula Room Air Oxygen Flow Rate 2 FIO2% 28 09/23/22 12:42 09/23/22 13:12 09/23/22 12:30 Temperature 98.5 F Pulse Rate 81 Respiratory Rate 25 H 22 26 H Blood Pressure 134/76 O2 Sat by Pulse Oximetry 97 Oxygen Delivery Method Room Air Oxygen Flow Rate FIO2% 09/23/22 12:45 09/23/22 13:00 09/23/22 13:15 Temperature Pulse Rate 77 72 70 Respiratory Rate 20 16 12 Blood Pressure 130/74 122/70 114/66 O2 Sat by Pulse Oximetry 96 97 97 Oxygen Delivery Method Room Air Room Air Room Air Oxygen Flow Rate FIO2% 09/23/22 13:30 09/23/22 13:45 09/23/22 14:00 Temperature 98.5 F Pulse Rate 73 73 70 Respiratory Rate 17 15 12 Blood Pressure 114/66 120/69 120/69 O2 Sat by Pulse Oximetry 98 96 98 Oxygen Delivery Method Room Air Room Air Room Air Oxygen Flow Rate FIO2% 09/23/22 15:00 09/23/22 16:00 09/23/22 14:35 Temperature 97.9 F Pulse Rate 90 92 H Respiratory Rate 19 17 17 Blood Pressure 127/75 114/57 O2 Sat by Pulse Oximetry 96 96 Oxygen Delivery Method Room Air Room Air Oxygen Flow Rate FIO2% 09/23/22 17:07 09/23/22 15:35 09/23/22 09:00 Temperature Pulse Rate 71 Respiratory Rate 20 20 18 Blood Pressure O2 Sat by Pulse Oximetry 99 Oxygen Delivery Method Oxygen Flow Rate FIO2% 09/23/22 09:01 09/23/22 09:01 09/23/22 12:30 Temperature Pulse Rate 68 Respiratory Rate 22 Blood Pressure 122/65 134/76 O2 Sat by Pulse Oximetry 98 Oxygen Delivery Method Oxygen Flow Rate FIO2% 09/23/22 12:30 09/23/22 12:45 09/23/22 12:45 Temperature Pulse Rate 81 77 Respiratory Rate 26 H 20 Blood Pressure 130/74 O2 Sat by Pulse Oximetry 96 Oxygen Delivery Method Oxygen Flow Rate FIO2% 09/23/22 13:00 09/23/22 13:00 09/23/22 13:15 Temperature Pulse Rate 72 Respiratory Rate 16 Blood Pressure 122/70 114/66 O2 Sat by Pulse Oximetry 97 Oxygen Delivery Method Oxygen Flow Rate FIO2% 09/23/22 13:15 09/23/22 13:30 09/23/22 13:30 Temperature Pulse Rate 70 73 Respiratory Rate 9 L 17 Blood Pressure 114/66 O2 Sat by Pulse Oximetry 97 98 Oxygen Delivery Method Oxygen Flow Rate FIO2% 09/23/22 13:45 09/23/22 13:45 09/23/22 14:00 Temperature Pulse Rate 73 Respiratory Rate 15 Blood Pressure 120/69 120/69 O2 Sat by Pulse Oximetry 96 Oxygen Delivery Method Oxygen Flow Rate FIO2% 09/23/22 14:00 09/23/22 14:15 09/23/22 14:15 Temperature Pulse Rate 70 70 Respiratory Rate 14 Blood Pressure 112/68 O2 Sat by Pulse Oximetry 98 94 L Oxygen Delivery Method Room Air Oxygen Flow Rate FIO2% 09/23/22 14:28 09/23/22 14:30 09/23/22 14:31 Temperature Pulse Rate 71 71 Respiratory Rate 12 Blood Pressure 115/70 O2 Sat by Pulse Oximetry 94 L 96 Oxygen Delivery Method Oxygen Flow Rate FIO2% 09/23/22 14:45 09/23/22 14:45 09/23/22 15:00 Temperature Pulse Rate 82 Respiratory Rate 19 Blood Pressure 123/72 127/75 O2 Sat by Pulse Oximetry 97 Oxygen Delivery Method Oxygen Flow Rate FIO2% 09/23/22 15:00 09/23/22 15:15 09/23/22 15:16 Temperature Pulse Rate 90 94 H Respiratory Rate 19 Blood Pressure 132/84 O2 Sat by Pulse Oximetry 96 95 Oxygen Delivery Method Room Air Oxygen Flow Rate FIO2% 09/23/22 15:16 09/23/22 15:16 09/23/22 15:30 Temperature Pulse Rate 92 H Respiratory Rate 18 Blood Pressure 132/84 115/63 O2 Sat by Pulse Oximetry 95 Oxygen Delivery Method Oxygen Flow Rate FIO2% 09/23/22 15:30 09/23/22 15:45 09/23/22 15:45 Temperature Pulse Rate 93 H 92 H Respiratory Rate 20 17 Blood Pressure 112/67 O2 Sat by Pulse Oximetry 95 96 Oxygen Delivery Method Oxygen Flow Rate FIO2% 09/23/22 16:00 09/23/22 16:00 09/23/22 16:15 Temperature 97.9 F Pulse Rate 92 H Respiratory Rate 17 Blood Pressure 114/57 111/57 O2 Sat by Pulse Oximetry 96 Oxygen Delivery Method Oxygen Flow Rate FIO2% 09/23/22 16:15 09/23/22 16:30 09/23/22 16:30 Temperature Pulse Rate 94 H 94 H Respiratory Rate 19 13 Blood Pressure 113/59 O2 Sat by Pulse Oximetry 95 96 Oxygen Delivery Method Oxygen Flow Rate FIO2% 09/23/22 16:45 09/23/22 16:45 09/23/22 17:00 Temperature Pulse Rate 92 H Respiratory Rate 16 Blood Pressure 117/57 117/68 O2 Sat by Pulse Oximetry 95 Oxygen Delivery Method Oxygen Flow Rate FIO2% 09/23/22 17:00 09/23/22 17:15 09/23/22 17:15 Temperature Pulse Rate 99 H 99 H Respiratory Rate 17 17 Blood Pressure 124/70 O2 Sat by Pulse Oximetry 97 96 Oxygen Delivery Method Oxygen Flow Rate FIO2% 09/23/22 17:30 09/23/22 17:30 09/23/22 17:45 Temperature Pulse Rate 95 H Respiratory Rate 15 Blood Pressure 126/62 127/65 O2 Sat by Pulse Oximetry 96 Oxygen Delivery Method Oxygen Flow Rate FIO2% 09/23/22 17:45 09/23/22 18:00 09/23/22 18:00 Temperature Pulse Rate 93 H 92 H Respiratory Rate 23 13 Blood Pressure 126/66 O2 Sat by Pulse Oximetry 97 95 Oxygen Delivery Method Oxygen Flow Rate FIO2% 09/23/22 16:45 09/23/22 17:15 09/23/22 19:18 Temperature Pulse Rate Respiratory Rate 23 16 18 Blood Pressure O2 Sat by Pulse Oximetry Oxygen Delivery Method Oxygen Flow Rate FIO2% 09/23/22 21:15 09/23/22 19:48 09/23/22 19:00 Temperature Pulse Rate Respiratory Rate 20 18 Blood Pressure O2 Sat by Pulse Oximetry Oxygen Delivery Method Room Air Oxygen Flow Rate FIO2% 09/23/22 18:15 09/23/22 18:15 09/23/22 18:30 Temperature Pulse Rate 92 H Respiratory Rate 12 Blood Pressure 133/68 123/60 O2 Sat by Pulse Oximetry 97 Oxygen Delivery Method Oxygen Flow Rate FIO2% 09/23/22 18:30 09/23/22 18:45 09/23/22 18:45 Temperature Pulse Rate 90 93 H Respiratory Rate 11 L 13 Blood Pressure 120/62 O2 Sat by Pulse Oximetry 97 95 Oxygen Delivery Method Oxygen Flow Rate FIO2% 09/23/22 19:00 09/23/22 19:00 09/23/22 19:15 Temperature Pulse Rate 87 Respiratory Rate 13 Blood Pressure 131/70 114/60 O2 Sat by Pulse Oximetry 96 Oxygen Delivery Method Oxygen Flow Rate FIO2% 09/23/22 19:15 09/23/22 19:30 09/23/22 19:30 Temperature Pulse Rate 89 91 H Respiratory Rate 13 29 H Blood Pressure 124/64 O2 Sat by Pulse Oximetry 95 96 Oxygen Delivery Method Oxygen Flow Rate FIO2% 09/23/22 19:45 09/23/22 19:45 09/23/22 20:00 Temperature 98.4 F Pulse Rate 93 H Respiratory Rate 26 H Blood Pressure 134/71 126/63 O2 Sat by Pulse Oximetry 96 Oxygen Delivery Method Oxygen Flow Rate FIO2% 09/23/22 20:00 09/23/22 20:15 09/23/22 20:15 Temperature Pulse Rate 92 H 90 Respiratory Rate 17 25 H Blood Pressure 114/59 O2 Sat by Pulse Oximetry 95 95 Oxygen Delivery Method Oxygen Flow Rate FIO2% 09/23/22 20:30 09/23/22 20:30 09/23/22 20:45 Temperature Pulse Rate 83 Respiratory Rate 12 Blood Pressure 119/62 130/68 O2 Sat by Pulse Oximetry 94 L Oxygen Delivery Method Oxygen Flow Rate FIO2% 09/23/22 20:45 09/23/22 21:00 09/23/22 21:00 Temperature Pulse Rate 102 H 82 Respiratory Rate 55 H 14 Blood Pressure 115/62 O2 Sat by Pulse Oximetry 96 95 Oxygen Delivery Method Oxygen Flow Rate FIO2% 09/23/22 21:15 09/23/22 21:15 09/23/22 21:30 Temperature Pulse Rate 89 Respiratory Rate 40 H Blood Pressure 111/61 143/69 O2 Sat by Pulse Oximetry 96 Oxygen Delivery Method Oxygen Flow Rate FIO2% 09/23/22 21:30 09/23/22 21:45 09/23/22 21:45 Temperature Pulse Rate 84 86 Respiratory Rate 14 13 Blood Pressure 125/62 O2 Sat by Pulse Oximetry 94 L 92 L Oxygen Delivery Method Oxygen Flow Rate FIO2% 09/23/22 22:00 09/23/22 22:00 09/23/22 21:45 Temperature Pulse Rate 86 Respiratory Rate 9 L 20 Blood Pressure 125/63 O2 Sat by Pulse Oximetry 96 Oxygen Delivery Method Oxygen Flow Rate FIO2% 09/23/22 22:15 09/23/22 22:15 09/23/22 22:30 Temperature Pulse Rate 89 Respiratory Rate 13 Blood Pressure 122/64 146/71 O2 Sat by Pulse Oximetry 93 L Oxygen Delivery Method Oxygen Flow Rate FIO2% 09/23/22 22:30 09/23/22 22:45 09/23/22 22:45 Temperature Pulse Rate 92 H 87 Respiratory Rate 16 14 Blood Pressure 124/67 O2 Sat by Pulse Oximetry 95 95 Oxygen Delivery Method Oxygen Flow Rate FIO2% 09/23/22 23:00 09/23/22 23:00 09/23/22 23:14 Temperature Pulse Rate 87 Respiratory Rate 13 99 H Blood Pressure 131/72 O2 Sat by Pulse Oximetry 95 Oxygen Delivery Method Oxygen Flow Rate FIO2% 09/24/22 01:51 09/23/22 23:15 12/15/22 23:15 Temperature Pulse Rate 86 Respiratory Rate 18 13 Blood Pressure 138/73 O2 Sat by Pulse Oximetry 96 Oxygen Delivery Method Oxygen Flow Rate FIO2% 09/23/22 23:30 09/23/22 23:30 09/23/22 23:45 Temperature Pulse Rate 86 Respiratory Rate 21 Blood Pressure 133/72 135/78 O2 Sat by Pulse Oximetry 96 Oxygen Delivery Method Oxygen Flow Rate FIO2% 09/23/22 23:45 09/24/22 00:00 09/24/22 00:00 Temperature Pulse Rate 85 76 Respiratory Rate 13 12 Blood Pressure 140/80 O2 Sat by Pulse Oximetry 97 92 L Oxygen Delivery Method Oxygen Flow Rate FIO2% 09/23/22 23:44 09/24/22 01:34 09/24/22 00:15 Temperature Pulse Rate Respiratory Rate 14 22 Blood Pressure 141/79 O2 Sat by Pulse Oximetry Oxygen Delivery Method Oxygen Flow Rate FIO2% 09/24/22 00:15 09/24/22 00:30 09/24/22 00:30 Temperature Pulse Rate 74 73 Respiratory Rate 12 10 L Blood Pressure 142/79 O2 Sat by Pulse Oximetry 93 L 91 L Oxygen Delivery Method Oxygen Flow Rate FIO2% 09/24/22 00:45 09/24/22 00:45 09/24/22 01:00 Temperature Pulse Rate 78 Respiratory Rate 13 Blood Pressure 128/74 153/89 O2 Sat by Pulse Oximetry 93 L Oxygen Delivery Method Oxygen Flow Rate FIO2% 09/24/22 01:00 09/24/22 01:15 09/24/22 01:15 Temperature Pulse Rate 77 76 Respiratory Rate 15 18 Blood Pressure 144/75 O2 Sat by Pulse Oximetry 94 L 96 Oxygen Delivery Method Oxygen Flow Rate FIO2% 09/24/22 01:30 09/24/22 01:33 09/24/22 01:33 Temperature Pulse Rate 81 80 Respiratory Rate 33 H 12 Blood Pressure 119/66 O2 Sat by Pulse Oximetry 97 96 Oxygen Delivery Method Oxygen Flow Rate FIO2% 09/24/22 02:04 09/24/22 01:45 09/24/22 02:00 Temperature Pulse Rate 79 Respiratory Rate 18 17 Blood Pressure 132/69 O2 Sat by Pulse Oximetry 97 Oxygen Delivery Method Oxygen Flow Rate FIO2% 09/24/22 02:00 09/24/22 02:15 09/24/22 02:30 Temperature 98.6 F Pulse Rate 72 74 76 Respiratory Rate 14 13 13 Blood Pressure O2 Sat by Pulse Oximetry 93 L 91 L 91 L Oxygen Delivery Method Oxygen Flow Rate FIO2% 09/24/22 02:45 09/24/22 03:00 09/24/22 03:00 Temperature Pulse Rate 75 73 Respiratory Rate 13 11 L Blood Pressure 146/70 O2 Sat by Pulse Oximetry 92 L 95 Oxygen Delivery Method Oxygen Flow Rate FIO2% 09/24/22 03:15 09/24/22 02:51 09/23/22 20:40 Temperature Pulse Rate 71 Respiratory Rate 11 L 18 Blood Pressure O2 Sat by Pulse Oximetry 92 L Oxygen Delivery Method Nasal Cannula Oxygen Flow Rate 2 FIO2% 28 09/24/22 03:30 09/24/22 03:45 09/24/22 04:00 Temperature Pulse Rate 72 71 Respiratory Rate 10 L 11 L Blood Pressure 127/67 O2 Sat by Pulse Oximetry 92 L 92 L Oxygen Delivery Method Oxygen Flow Rate FIO2% 09/24/22 04:00 09/24/22 04:15 09/24/22 04:30 Temperature Pulse Rate 72 71 71 Respiratory Rate 12 11 L 12 Blood Pressure O2 Sat by Pulse Oximetry 92 L 92 L 92 L Oxygen Delivery Method Oxygen Flow Rate FIO2% 09/24/22 04:45 09/24/22 05:00 09/24/22 05:00 Temperature 98.0 F Pulse Rate 78 72 Respiratory Rate 18 11 L Blood Pressure 137/66 O2 Sat by Pulse Oximetry 95 94 L Oxygen Delivery Method Oxygen Flow Rate FIO2% 09/24/22 05:33 09/24/22 06:03 09/24/22 05:15 Temperature Pulse Rate 77 Respiratory Rate 22 18 21 Blood Pressure O2 Sat by Pulse Oximetry 97 Oxygen Delivery Method Oxygen Flow Rate FIO2% 09/24/22 05:30 09/24/22 05:45 09/24/22 06:00 Temperature Pulse Rate 71 66 Respiratory Rate 13 22 Blood Pressure 142/79 O2 Sat by Pulse Oximetry 98 97 Oxygen Delivery Method Oxygen Flow Rate FIO2% 09/24/22 06:00 09/24/22 06:15 09/24/22 06:30 Temperature Pulse Rate 64 66 68 Respiratory Rate 18 14 21 Blood Pressure O2 Sat by Pulse Oximetry 97 97 97 Oxygen Delivery Method Oxygen Flow Rate FIO2% 09/24/22 06:45 09/24/22 07:31 09/24/22 09:53 Temperature 98.1 F Pulse Rate 66 69 Respiratory Rate 14 20 20 Blood Pressure 144/85 O2 Sat by Pulse Oximetry 98 98 Oxygen Delivery Method Room Air Oxygen Flow Rate FIO2% 09/24/22 10:00 09/24/22 10:15 09/24/22 10:30 Temperature 97.9 F Pulse Rate 66 67 67 Respiratory Rate 16 15 18 Blood Pressure 99/62 113/67 110/63 O2 Sat by Pulse Oximetry 97 98 99 Oxygen Delivery Method Nasal Cannula Nasal Cannula Nasal Cannula Oxygen Flow Rate 2 2 2 FIO2% 09/24/22 10:45 09/24/22 11:00 09/24/22 12:00 Temperature 97.2 F L Pulse Rate 69 73 68 Respiratory Rate 18 16 13 Blood Pressure 106/59 159/78 127/68 O2 Sat by Pulse Oximetry 97 99 95 Oxygen Delivery Method Nasal Cannula Room Air Room Air Oxygen Flow Rate 2 FIO2% 09/24/22 13:00 09/24/22 07:00 Temperature Pulse Rate 62 Respiratory Rate 15 Blood Pressure 167/76 O2 Sat by Pulse Oximetry 98 Oxygen Delivery Method Room Air Room Air Oxygen Flow Rate FIO2% Labs: Laboratory Last Values WBC 12.6 X10^3/uL (3.6-10.0) H 09/24/22 12:42 RBC 4.39 X10^6/uL (3.5-5.4) 09/24/22 12:42 Hgb 12.8 g/dL (12.0-16.0) 09/24/22 12:42 Hct 37.6 % (36.0-47.0) 09/24/22 12:42 MCV 85.8 fL (80.0-100.0) 09/24/22 12:42 MCH 29.1 pg (27.0-34.0) 09/24/22 12:42 MCHC 33.9 g/dL (33.0-35.0) 09/24/22 12:42 RDW 15.7 % (11.6-16.5) 09/24/22 12:42 Plt Count 202 X10^3/uL (150.0-450.0) 09/24/22 12:42 MPV 7.9 fL (7.4-11.0) 09/24/22 12:42 Neut % (Auto) 72.2 % (42.0-75.0) 09/24/22 12:42 Lymph % (Auto) 23.3 % (21.0-51.0) 09/24/22 12:42 [place] % (Auto) 3.6 % (0.0-13.0) 09/24/22 12:42 Eos % (Auto) 0.5 % (0.9-2.9) L 09/24/22 12:42 Baso % (Auto) 0.4 % (0.2-1.0) 09/24/22 12:42 Neut # (Auto) 9.1 x10^3/uL (2.2-4.8) H 09/24/22 12:42 Lymph # (Auto) 2.9 X10^3/uL (1.3-2.9) 09/24/22 12:42 [place] # (Auto) 0.5 x10^3/uL (0.3-0.8) 09/24/22 12:42 Eos # (Auto) 0.1 x10^3/uL (0.0-0.2) 09/24/22 12:42 Baso # (Auto) 0.0 X10^3/uL (0.0-0.1) 09/24/22 12:42 Absolute Nucleated RBC 0.0 /100WBC 09/24/22 12:42 PT 13.2 SECONDS (11.8-14.3) 09/21/22 12:30 INR Target Range - 09/21/22 12:30 INR 1.03 (0.8-1.3) 09/21/22 12:30 APTT 35.8 SECONDS (22.9-36.5) 09/24/22 12:42 PTT Comment - 09/24/22 12:42 Fibrinogen 303 mg/dL (239-489) 09/24/22 12:42 Sodium 142 mmol/L (136-145) 09/23/22 02:40 Corrected Sodium TNP 09/23/22 02:40 Potassium 4.3 mmol/L (3.5-5.1) 09/23/22 02:40 Chloride 108 mmol/L (98-107) H 09/23/22 02:40 Carbon Dioxide 28.3 mmol/L (21-32) 09/23/22 02:40 BUN 17 mg/dL (7-18) 09/23/22 02:40 Creatinine 0.92 mg/dL (0.55-1.02) 09/23/22 02:40 Est GFR (MDRD) Af Amer > 60 (>60) 09/23/22 02:40 Est GFR (MDRD) Non-Af > 60 (>60) 09/23/22 02:40 Glucose 102 mg/dL (65-99) H 09/23/22 02:40 POC Glucose (mg/dL) 127 mg/dL (65-99) H 09/24/22 11:50 Calcium 8.0 mg/dL (8.5-10.1) L 09/23/22 02:40 Corrected Calcium 8.7 mg/dL (8.5-10.1) 09/23/22 02:40 Magnesium 1.7 mg/dL (2.0-2.9) L 09/23/22 02:40 Total Bilirubin 0.10 mg/dL (0.2-1.0) L 09/23/22 02:40 AST 44 Units/L (15-37) H 09/23/22 02:40 ALT 46 Units/L (12-78) 09/23/22 02:40 Alkaline Phosphatase 110 Units/L (46-116) 09/23/22 02:40 Total Protein 6.0 g/dL (6.4-8.2) L 09/23/22 02:40 Albumin 3.1 g/dL (3.4-5.0) L 09/23/22 02:40 Globulin 2.9 g/dL (2.5-4.5) 09/23/22 02:40 Albumin/Globulin Ratio 1.1 Ratio (1.1-2.1) 09/23/22 02:40 Reason For Visit: ISCHEMIA RIGHT LEG Discharge Date Discharge Date: 09/24/22 Discharge Diagnosis All Active Problems (Updated 04/24/21 @ 10:14 by Reji Palma) Critical lower limb ischemia (Acute ~04/24/21) Plan of Treatment: Continue with present treatment and follow up plan. Pt is to keep follow up appointment as instructed and take medications as ordered. Discharge Medications Discharge Medications: No Known Drug Allergies [NKDA] Allergy (Verified 04/21/21 14:15) CONTINUE taking the following medications metformin 500 mg tablet 1 tab PO QDAY 09/21/22 [History] New Prescriptions aspirin 81 mg tablet,delayed release 81 mg PO QDAY #90 tabs 09/24/22 [Rx] Discharge Disposition Assessment: No acute distress noted at time of discharge. Discharge Plan Discharge Plan Hospital Course: This is a 52 year old female with significant history of tobacco abuse who has required stenting of the left iliac artery for complete occlusion in the past, most recently two weeks ago where she had severe intrastent stenosis requiring additional stent place. This is a presumably due to her continued tobacco abuse. CT angiogram at that time showed no obvious problem with the right leg. She presented at her second follow up 09/21/2022, approximately two weeks post procedure complaining of increasing pain of the right leg with walking. I could detect no Doppler signal in the ankle or the foot on the right side and she was admitted and placed on a Heparin drip. Follow-up CT angiogram showed occlusion of the right popliteal and tibial peroneal trunk arteries presumable due to thrombus. However she was on low dose of Xarelto and aspirin .There was no evidence of atrial fibrillation .She had and echocardiogram the following day and continued on the Heparin drip. The results of echocardiogram are still pending. 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 The anterior tibial artery was ballooned with a regular 3 mm angioplasty balloon , the tibial -peroneal trunk with a 4 mm drug coated balloon and the popliteal artery with a 5 mm drug coated ballon. She has done well. She has excellent doppler signal at the ankle and will be discharged home on Xarelto 15 mg BID , aspirin 81 mg by mouth daily , her usual medications and Percocet 5 mg tablets 1 every 6 hours PRN pain. She will follow up with me next week. Patient Disposition: 01 HOME, SELF-CARE Condition: Stable Health Concerns: Post Hospitalization: new medications and changes needed to prevent readmission or further decline. Pt educated and given instructions on all concerns. Care Plan Goals: Problem: Pain/Alteration in Comfort Goal: Improve/ Resolve Pain; Achieve Pain Tolerance Instructions: Take pain medications as prescribed. Contact your primary care provider if your pain is unrelieved or worsens. Follow up with primary care provider as directed. Plan of Treatment: Continue with present treatment and follow up plan. Pt is to keep follow up appointment as instructed and take medications as ordered. Assessment: No acute distress noted at time of discharge. Prescriptions: New aspirin 81 mg tablet,delayed release (DR/EC) 81 mg PO QDAY Qty: 90 0RF No Action losartan 50 mg tablet 1 tab PO QDAY atorvastatin 40 mg tablet 1 tab PO QDAY metoprolol succinate 50 mg tablet extended release 24 hr 1 tab PO QDAY clonazepam 1 mg tablet 1 tab PO BID PRN hydrochlorothiazide 12.5 mg capsule 1 cap PO QDAY Trintellix 20 mg tablet 1 tab PO QDAY Xarelto 15 mg tablet 15 mg PO BID Qty: 60 0RF Rx Instructions: must administer with evening meal oxycodone-acetaminophen [Percocet] 5-325 mg tablet 1 tab PO Q6H MDD 4 PRNQty: 30 0RF metformin 500 mg tablet 1 tab PO QDAY Follow ups/Referrals Follow ups/Referrals: ALPHONSO CORLEY [Primary Care Provider] - 10/01/22 9:45 am Reji Palma [STAFF PHYSICIAN] - 09/28/22 10:30 am Instructions Instructions: Steps to Quit Smoking, [id number], Bleeding Precautions When on Anticoagulant Therapy, Adult, Health Risks of Smoking, Coronary Angioplasty, Care After, Atherosclerosis, Hyperglycemia, [id number], Pulmonary Hypertension, Carotid Angioplasty With Stent, [id number], Preventing Problems After Surgery
--- NOTE | 2022-09-25 11:34 | DR.OPNOTE ---
OP NOTE Pre-Op Diagnosis: occlusion right popliteal and right tibia peroneal trunk arteries Post-Op Diagnosis: same Procedure Date Date Of Procedure: 09/23/22 Procedure: PROCEDURE: diagnostic aortogram , diagnostic areeriogram right leg. Angiojet thrombectomy right popliteal and right tibial peroneal trunk arteries, placement of EKOS thrombolytic catheter covering the right tibial peroneal trunk trunk and the peroneal arteries. NARRATIVE: The patient was taken to the operative suite and placed in the supine position. She was given intravenous sedation which was supervised by myself. The left groin and entire right leg were prepped and draped in sterile fashion. Time out for the procedure obtained. Ultrasound used to identify the left femoral artery and the skin overlying it infiltrated with 0. 5% Marcaine . Ultrasound used to puncture the left femoral artery and a 0.012 inch guidewire placed. Incision made over the guide wire at the skin edge with a number 11 knife blade and a micro sheath placed over the guide wire into the left femoral artery. Small guide wire exchange for a 0. 035 inch Advantage glidewire and the micro sheath exchanged for a 5-Fr vascular sheath . Over the guide we placed an Omni aortic catheter and performed Diagnostic aortogram showing normal aorta and normal iliac arterial vessels. The stent of the left iliac artery was completely open. Omni catheter used to steer the glide wire down the right iliac artery to the right femoral artery . The Omni catheter was exchanged for a Forbes catheter and sequential arteriograms of the right leg performed showing normal superficial femoral artery with occluded right distal popliteal artery, occluded right tibial -peroneal trunk and right peroneal arteries . The right anterior tibial artery was occluded at its takeoff . Using the Forbes catheter the 0. 035 inch glidewire exchanged for 0. 014 inch guide wire and used to selectively catheterize the right peroneal artery. Over this wire we placed the Angiojet thrombectomy device and performed thrombectomy of the right popliteal artery, right tibial peroneal trunk and the right peroneal artery . Repeat arteriogram showed a portion of the clot was removed but there appeared to be residual there. For this reason the peroneal artery was dilated with a 3 mm x 150 mm [place] [employer] [place] balloon. After this, angioplasty performed of the right tibial peroneal trunk using the same balloon. Arteriogram still showed residual disease. Therefore the 0. 014 inch wire removed and exchanged for the 0. 035 inch wire. Over the 0. 035 inch wire we placed an EKOS catheter all the way into the peroneal artery, removed the wire and placed the core of the catheter and connected it to send the EKOS vibrating device . Through the drug port the patient was bolused with 3 mg of TPA ,and TPA started at 1 mg per hour, coolant was started at 30 cc's per hour and heparin was started 500 units per hour. Catheter secured to the left groin with an interrupted silk suture and a sterile dressing. The patient was taken back to the ICU for overnight thrombolysis . She tolerated this well. Type of Anesthesia: Local (0.5% Marcaine) Anesthesia Comment: plus MAC Findings: thrombosis /occlusion right popliteal artery, right TV from your trunk, proximal right anterior tibial artery ,combination of atherosclerotic d isease and thrombosis Type of Fluids Used:: Lactated Ringers Total Amount of Fluid Infused:: 500 cc Urine output: 600 cc EBL: 100 c Complications:: none Needle/Sponge Count:: correct Disposition/Condition: Pt. tolerated procedure without difficulty. Taken to [facility] in stable condition.
--- NOTE | 2022-09-27 00:19 | DR.OPNOTE ---
OP NOTE Pre-Op Diagnosis: Thrombosis/ critical right leg ischemia Post-Op Diagnosis: Thrombosis R popliteal ,R tibial peroneal trunk, and R peroneal artery Procedure Date Date Of Procedure: 09/24/22 Procedure: PROCEDURE: arteriogram right lower extremity, angioplasty right anterior tibial artery, drug-coated balloon angioplasty right tibial peroneal trunk artery, drug coated balloon angioplasty right popliteal artery. NARRATIVE: The patient was taken to the operative suite. She has undergone thrombolysis overnight via an EKOS catheter instilling TPA in the right peroneal artery, right tibial peroneal trunk artery and right popliteal artery overnight . She was placed in the supine position and both groins prepped and draped in sterile fashion. The TPA had been discontinued and she continued on a Heparin drip through a peripheral based IV. Time out for the procedure obtained . The EKOS catheter was removed and arteriogram carried out through the destination sheath which was in the distal superficial femoral artery. It showed resolution of most of the clot of the right popliteal artery, right tibial peroneal trunk artery and the right peroneal artery. However, there appeared to be significant disease pn all of these arteries as well as occlusion of the proximal right anterior tibial artery . 0. 035 inch wire been placed down the destination sheath and [place] catheter placed over it. This was exchanged for a 0.014 inch wire .The wire place down the right anterior tibial as selective catherization. Over this wire we placed a 3 mm by 100 mm [employer] [place] balloon and inflated it for 1 minute. This removed and the wire positioned down the right peroneal artery as selective catheterization I then placed a 4 mm by 100mmm drug-coated [place] balloon across the proximal right peroneal artery and inflated it for three minutes. This was removed and a 5 mm [place] drug coated balloon used to dilate the right popliteal artery, inflating it for three minutes . Post procedure arteriogram showed excellent results with good flow to the right foot with 2 vessel runoff through the right peroneal and posterior tibial arteries. Destination sheath was pulled back into the aorta and a 0. 035 inch wire placed. The destination sheath removed from the left groin and exchanged [id number] for an Angio seal device which was used to close the puncture of the left femoral artery . Doppler signal was biphasic in the dorsalis pedis and posterior tibial arteries at the end of the case. Dressing applied to the left groin Patient was taken back to the ICU after the procedure in good condition. Type of Anesthesia: Local (0.5% Marcaine) Anesthesia Comment: plus MAC Findings: Thrombosis of the above arteries resolved after overnight thrombolysis with TPA, significant atherosclerosis of the right popliteal, right tibial peroneal trunk and right peroneal arteries Type of Fluids Used:: Lactated Ringers Total Amount of Fluid Infused:: 750 cc Urine output: 400 cc EBL: 50 cc Complications:: none Needle/Sponge Count:: correct Disposition/Condition: Pt. tolerated procedure without difficulty. Taken to [facility] in stable condition.
== END 2022-09-24 14:45 | disposition home or self-care (01) | DRG 253 ==
LOC: ICU 10:33
PROVIDERS: ADMIT Surgery; ATTEND Surgery
DX: R79.1 Abnormal coagulation profile; Z72.0 Tobacco use; I70.221 Atherosclerosis of native arteries of extremities with rest pain, right leg; I74.8 Embolism and thrombosis of other arteries